=== PATIENT | male | born 1955 | race Caucasian/White ===

== ENCOUNTER → 2017-02-12 | Outpatient (CLI) | payer BC ==
[~2017-02-12] MED LIST: ALL180 PO; ATOR-22 PO; BACL10TA PO; ESCI10TA17 PO; FEXO1TAB49 PO; INSDGI SC; INSU70IN2 SC; LISI40TA PO; NVLGIPEN; SIMV20TA2 PO; SITA100T3 PO; TEMA30CA4 PO; VERA240T20 PO
--- NOTE | 2017-02-12 11:43 | DIAGNOSTIC IMAGING REPORT ---
PA CHEST WITH BILATERAL RIB SERIES CLINICAL HISTORY: Atypical chest pain. Fall. FINDINGS: A PA chest radiograph with 8 additional views from a bilateral rib series is compared to study dated 01/23/2016 and correlated with chest CT dated 07/14/2006. The heart is enlarged. The pulmonary vasculature is noncongested. There is minimal left basilar atelectasis. The lungs and pleural spaces are otherwise clear. No pneumothorax is seen. There is no radiographic evidence of acute/distracted rib fracture on the bilateral rib series. The remainder of the bony thorax is grossly intact. Fusion hardware is noted in the lower cervical spine. IMPRESSION: 1. Cardiomegaly with no acute cardiopulmonary abnormality. 2. There is no radiographic evidence of acute/distracted rib fracture on the bilateral rib series. Electronically signed by: Deyvi Shabazz M.D. 02/12/2017 11:42 AM Dictated Date/Time: 02/12/2017 11:40 AM
== END | disposition home or self-care (01) ==
LOC: C.RAD1850 11:14
PROVIDERS: ATTEND Nurse Practitioner Family
DX: R07.9 Chest pain, unspecified (principal); W19.XXXA Unspecified fall, initial encounter; I42.9 Cardiomyopathy, unspecified

== ENCOUNTER → 2017-02-17 | Outpatient (CLI) | payer BC ==
[2017-02-17 16:30] LABS: BASO % 0.1 %; BASO ABS # 0.01 K/uL (0-0.2); COMPLETE YES; EOS % 0.1 %; HEMATOCRIT 38.4 % (42-52); IG% 0.2 %; LYMPH % 21.4 %; LYMPH ABS # 1.99 K/uL (1.2-3.4); MEAN CELL VOLUME 86.9 fL (80-100); MEAN CORPUSCULAR HEMOGLOBIN 30.1 pg (25-34); MEAN CORPUSCULAR HGB CONC 34.6 g/dl (32-36); MEAN PLATELET VOLUME 9.1 fL (7.4-10.4); NEUT % 72.2 %; PLATELET COUNT 300 K/uL (130-400); PROTHROMBIN TIME (PATIENT) 10.7 SECONDS (9.0-12.0); RED BLOOD COUNT 4.42 M/uL (4.7-6.1)
[2017-02-17 16:53] LABS: POTASSIUM 3.7 mmol/L (3.5-5.1)
== END | disposition home or self-care (01) ==
LOC: C.CPL 13:38
PROVIDERS: ATTEND Physician Assistant
DX: Z01.818 Encounter for other preprocedural examination (principal)

== ENCOUNTER → 2017-02-27 | Outpatient (CLI) | payer BC ==
[~2017-02-27] MED LIST changes: -ALL180 PO; -BACL10TA PO; -INSU70IN2 SC; -SITA100T3 PO; -TEMA30CA4 PO
--- NOTE | 2017-02-27 19:28 | PULMONARY FUNCTION TEST ---
CLINICAL DATA: A 61-year-old male with a height of 69 inches and a weight of 235 pounds, referred by Brent Abdalla for evaluation of shortness of breath. Spirometry pre- and post-bronchodilator, lung volumes and diffusion capacity were performed. FINDINGS: Pre-bronchodilator spirometry is within normal limits. FVC was 83% of predicted. FEV1 was 87% of predicted. [id number] was 110% of predicted. There was no significant improvement after inhaled bronchodilator. FVC improved 3% to 85% of predicted. FEV1 improved 4% to 91% of predicted. [id number] improved 7% to 118% of predicted. Lung volumes were normal with the exception of a reduction in expiratory reserve volume to 51% of predicted due to obesity. Diffusion capacity was normal at 79% of predicted. IMPRESSION: No evidence of significant obstructive airways disease with no significant improvement after inhaled bronchodilator. Minimal reduction in expiratory reserve volume due to obesity. Normal DLCO. MTDD
== END | disposition home or self-care (01) ==
LOC: C.RC 10:47
PROVIDERS: ATTEND Nurse Practitioner Family
DX: R06.02 Shortness of breath (principal); E66.9 Obesity, unspecified

== ENCOUNTER → 2017-04-04 | Outpatient (CLI) | payer BC ==
--- NOTE | 2017-04-04 15:47 | DIAGNOSTIC IMAGING REPORT ---
CHEST 2 VIEWS ROUTINE CLINICAL HISTORY: Cough. COMPARISON STUDY: Chest radiograph February 12, 2017. FINDINGS: Anterior cervical spine fusion is incidentally noted. There is no pneumothorax or pleural effusion. Cardiomegaly is unchanged. Mediastinal contours are stable. There is no evidence of pulmonary edema. Lateral view demonstrates mild airspace opacity projecting over a lower lung, possibly within the left lower lung. IMPRESSION: Mild basilar opacity, likely within the left lower lung. This could reflect a small area of pneumonia or atelectasis. Follow-up PA and lateral chest radiographs in one month to ensure resolution are recommended. Electronically signed by: Adrian Hoover M.D. 04/04/2017 3:46 PM Dictated Date/Time: 04/04/2017 3:44 PM
== END | disposition home or self-care (01) ==
LOC: C.RAD1850 15:17
PROVIDERS: ATTEND Nurse Practitioner Family
DX: R05 Cough (principal); R91.8 Other nonspecific abnormal finding of lung field

== ENCOUNTER → 2017-04-11 | Outpatient (CLI) | payer BC ==
[~2017-04-11] MED LIST changes: +CYAN10005 PO; +ESCI1TAB10 PO; +FERR1TAB23 PO; +INSU1INJ33; +KETOCONAZOLE; +LANS30CA12 PO; +NVLGI7030 SC; +NYST1POW7 TOP; +ONDA8TAB62 SL; +TEMO1CAP; +TEMO1CAP7 PO
--- NOTE | 2017-04-11 13:30 | DIAGNOSTIC IMAGING REPORT ---
CHEST 2 VIEWS ROUTINE HISTORY: 61 years-old Male J18.9 [id number] follow-up study to assess left lower lobe opacity. COMPARISON: Chest radiograph 04/04/2017 TECHNIQUE: PA and lateral views of the chest FINDINGS: Cardiac silhouette is moderately enlarged, unchanged. No pneumothorax, pleural effusion or overt edema. No focal airspace consolidation identified. The previously noted left basilar opacity no longer identified. No lobar airspace consolidation to suggest pneumonia. Mild right hemidiaphragmatic elevation. The bones of the chest appear grossly intact. Degenerative changes are seen within the shoulders. Fusion hardware of the cervical spine. IMPRESSION: 1. Resolution of the previously noted left basilar opacity. 2. Cardiomegaly. The above report was generated using voice recognition software. It may contain grammatical, syntax or spelling errors. Electronically signed by: David Blanco M.D. 04/11/2017 1:28 PM Dictated Date/Time: 04/11/2017 1:26 PM
== END | disposition home or self-care (01) ==
LOC: C.RAD1850 13:17
PROVIDERS: ATTEND Nurse Practitioner Family
DX: J18.9 Pneumonia, unspecified organism (principal); I51.7 Cardiomegaly

== ENCOUNTER → 2017-06-03 | Outpatient (CLI) | payer OTHER ==
[~2017-06-03] MED LIST changes: -CYAN10005 PO; -ESCI1TAB10 PO; -FERR1TAB23 PO; -INSU1INJ33; -KETOCONAZOLE; -LANS30CA12 PO; -NVLGI7030 SC; -NYST1POW7 TOP; -ONDA8TAB62 SL; -TEMO1CAP; -TEMO1CAP7 PO
--- NOTE | 2017-06-03 10:10 | DIAGNOSTIC IMAGING REPORT ---
CHEST 2 VIEWS ROUTINE CLINICAL HISTORY: Z87.01 History of [id number] Shortness of [id number] COMPARISON STUDY: 04/11/2017, 2013 FINDINGS: Slightly progressive interstitial prominence of both lung bases. The mid and upper lungs are clear. Mild stable cardiomegaly. Mid mediastinal fullness considered chronic in this patient and unchanged from 2013. No well-defined focal infiltrative process. Pulmonary apices are clear. IMPRESSION: 1. Slightly progressive interstitial prominence both lung bases compared to several prior exams. 2. Diagnostic considerations include a nonspecific basilar interstitial pneumonitis, versus developing nonspecific basilar interstitial fibrosis. 3. CT of the chest should be considered as follow-up. The above report was generated using voice recognition software. It may contain grammatical, syntax or spelling errors. Electronically signed by: Jason Jaffe M.D. 06/03/2017 10:09 AM Dictated Date/Time: 06/03/2017 10:03 AM
== END | disposition home or self-care (01) ==
LOC: C.RAD1850 09:41
PROVIDERS: ATTEND Nurse Practitioner Family
DX: Z87.01 Personal history of pneumonia (recurrent) (principal); R06.02 Shortness of breath

== ENCOUNTER 2018-05-12 11:33 | Inpatient (IN) ==
[2018-05-12] MEDS ORDERED: SODIUM CHLORIDE 0.9% 1000ML 1,000 ML IV ONE (12:18)
[2018-05-12] MEDS ORDERED: DiphenhydrAMINE HCL 50 MG/ML VIAL IV STA (12:18)
[2018-05-12] MEDS ORDERED: PROCHLORPERAZINE 5 MG/ML 2 ML VIAL IV STA (12:18)
[2018-05-12 12:26] LABS: Eosinophils # (auto) 0.01 K/uL (0-0.5); Eosinophils % (auto) 0.1 %; Hematocrit (blood only) 38.1 % (42-52); Hemoglobin 13.2 g/dL (14.0-18.0); Immature Granulocytes # (auto) 0.09 K/uL (0.00-0.02); Immature Granulocytes % (auto) 1.3 %; Lymphocytes # (auto) 1.11 K/uL (1.2-3.4); Lymphocytes % (auto) 15.5 %; Mean Corpuscular Hgb Conc 34.6 g/dL (32-36); Mean Platelet Volume 8.9 fL (7.4-10.4); Monocytes # (auto) 0.44 K/uL (0.11-0.59); Monocytes % (auto) 6.1 %; Neutrophils # (auto) 5.52 K/uL (1.4-6.5); Platelet Count 177 K/uL (130-400); RDW Coefficient of Variation 15.9 % (11.5-14.5); RDW Standard Deviation 51.2 fL (36.4-46.3); Red Blood Count 4.28 M/uL (4.7-6.1); White Blood Count 7.17 K/uL (4.8-10.8)
--- NOTE | 2018-05-12 12:31 | XRay Report ---
XR chest 1V portable CLINICAL HISTORY: 62 years-old Male presenting with Chest Pain. TECHNIQUE: Portable upright AP view of the chest was obtained. COMPARISON: 05/08/2017. FINDINGS: Atherosclerosis of the aortic arch. Cardiac silhouette enlarged. Left retrocardiac density likely rel ates to the prominent pericardial fat in the setting of mediastinal lipomatosis. No focal lung opacit y. No large effusion or pneumothorax. Anterior cervical fusion hardware. Upper abdomen normal. IMPRESSION: 1. Cardiomegaly. No other convincing evidence of acute cardiopulmonary disease. Electronically signed by: Mark Dawn M.D. 05/12/2018 12:30 PM
[2018-05-12 12:34] LABS: Alanine Aminotransferase 42 U/L (12-78); Albumin Level 2.9 gm/dl (3.4-5.0); Aspartate Aminotransferase 7 U/L (15-37); BUN Creatinine Ratio 30.2 (10-20); Bilirubin Direct 0.1 mg/dl (0-0.2); Blood Urea Nitrogen 37 mg/dl (7-18); Calcium 8.6 mg/dl (8.5-10.1); Carbon Dioxide 23 mmol/L (21-32); Chloride 104 mmol/L (98-107); Creatinine Clr Calc Pharmacy 70.8 ml/min; Est GFR (African American) 72.7; Est GFR (Non-African American) 62.7; Glucose 295 mg/dl (70-99); Sodium 138 mmol/L (136-145)
[2018-05-12 12:43] LABS: Alkaline Phosphatase 53 U/L (45-117); Bilirubin,Total 0.5 mg/dl (0.2-1); Creatine Kinase 26 U/L (39-308); Phosphorus 4.4 mg/dl (2.5-4.9); Total Protein 5.9 gm/dl (6.4-8.2); Troponin I < 0.015 ng/ml (0-0.045)
[2018-05-12 12:56] LABS: T4 Free Thyroxine 0.92 ng/dl (0.8-1.6)
[2018-05-12 12:57] LABS: Appearance Urine Clear (Clear); Bilirubin Urine Negative (Negative); Color Urine Yellow; Glucose Urine UA 3+ (Negative); Ketones Urine Negative (Negative); Leukocyte Esterase Urine Negative (Negative); Nitrite Urine Negative (Negative); Protein Urine Negative (Negative); Specific Gravity Urine 1.031 (1.000-1.030); Urobilinogen Urine Negative (Negative)
--- NOTE | 2018-05-12 13:06 | CT Scan Report ---
CT SCAN OF THE BRAIN WITHOUT IV CONTRAST CLINICAL HISTORY: Headache. Brain tumor with recent surgery. COMPARISON STUDY: CT scans of the brain dated 05/08/2018 and 04/13/2018. TECHNIQUE: Unenhanced axial CT scan of the brain is performed from the vertex to the skull base. A do se lowering technique was utilized adhering to the principles of ALARA. CT DOSE: 614.27 mGy.cm FINDINGS: Brain parenchyma: Right temporal encephalomalacia is unchanged and consistent with a site of previous surgical resection. There is a low-attenuation extra-axial fluid collection identified along the rig ht convexity. This is unchanged from 05/08/2018 and measures up to 10 mm in thickness. This minimally effaces the subjacent cortical sulci and causes minimal (3 mm) right to left midline shift. There is approximately 7 x 2 cm CSF attenuation fluid collection seen within the subcutaneous soft tissues ove rlying the right convexity on image #13. 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 There is minimal subcortical and perive ntricular microangiopathic change. There is no acute hemorrhage or evidence of acute territorial isch emia by CT criteria. Ferris-white matter differentiation is preserved. Hyperdense material deep to the craniotomy site likely represents postoperative change. Ventricles, sulci, cisterns: Prominent secondary to involutional change. Intracranial vasculature: There is atherosclerotic calcification of the cavernous carotid arteries. Calvarium: Again seen are postoperative changes from right-sided craniotomy. Sinuses and mastoids: The visualized paranasal sinuses are clear. There are bilateral mastoid effusio ns. Orbits: The bony orbits are grossly intact. IMPRESSION: 1. Again seen are postoperative changes from right-sided craniotomy and temporal lobe resection. 2. Again seen is a low-attenuation extra-axial fluid collection along the right convexity measuring u p to 1.0 cm. This is unchanged from 05/08/2018 and likely represents a hygroma. Neurosurgical assessme nt is advised. 3. This collection effaces the subjacent cortical sulci and causes mild right to left midline shift. 4. There is an approximately 7 x 2 x 2 cm CSF attenuation fluid collection within the soft tissues ov erlying the right convexity. 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 This may have modestly increased in size from 2018. 5. No acute blood products are identified. There is no evidence of acute territorial ischemia by CT jeanmarie carbajal. Electronically signed by: Deyvi Shabazz M.D. 05/12/2018 1:05 PM
[2018-05-12] MEDS ORDERED: SODIUM CHLORIDE 0.9% 1000ML 1,000 ML IV STA (14:04)
--- NOTE | 2018-05-12 14:42 | History & Physical Report ---
Date of Service May 12, 2018 Assessment & Plan (1) Generalized weakness: He was quite weak while at [facility], and after d/c from there the weakness got progressively worse. He has no obvious infectious process at this time including UTI, pneumonia, influenza, etc. I believe he is severely deconditioned in light of his recent surgery, etc. The uncontrolled T2DM is also likely playing a role. He is also dehydrated from the uncontrolled blood sugars. I had a lengthy discussion with Dr. Aubrey Watts, neurosurgery at [facility], this afternoon. We reviewed the CT head in detail. Dr. Watts stated that there are no findings on today's head CT that require neurosurgical intervention. He recommended therapy, control of his DM, and to obtain the MRI brain that was already scheduled for later this week at [facility]. The patient has no signs of meningitis. His daily headaches are similar to what he had post-op at [facility]. To be complete will check a b12 level, sed rate, and crp. Check blood cultures but hold off on antibiotics. PT, OT consults. Patient also endorses severe depression - will ask psychiatry to see. He is already on several psychotropic drugs. Place on telemetry to r/o arrhythmia, etc causing weakness. Present on Admission?: Yes (2) Dehydration: Hydrate with NS; repeat BMP in am. DM diet as tolerated. Present on Admission?: Yes (3) Breath, shortness: Just had CTA chest a few days ago and this was negative for PEs, pneumonia , edema, etc. Will check echo to be complete; r/o LV dysfunction, effusion, etc. In the end the shortness of breath may be due to severe deconditioning. He has no history of CAD and I would not pursue a CAD work-up at this time. Present on Admission?: Yes (4) Depression: Severe, chronic, and getting worse in the midst of his recent surgery. Will ask psychiatry to see. Continue all previous medications. Present on Admission?: Yes (5) Glioblastoma: s/p resection in May 2017 shortly after time of diagnosis. s/p repeat resection in March 2018. Both at [facility]. Surgeon -- Dr. Aubrey Watts, [facility]. Office # - [phone]; Fax # - [phone]. Dr. Watts asked that when the MRI courtney is complete to please fax the results to his office. See above in "weakness" for details Re: my discussion with him today. He advised against increasing his decadron as he has not tolerated higher levels of the decadron. Plan - MRI brain w/ contrast. Continue decadron 2mg daily. Supportive care. Will need f/u with surgeon after discharge. Continue keppra 500 BID for seizure prophylaxis. does not report any recent seizures at home. (6) Stroke: perioperative, March 2018/April 2018 hospital stay. caused mild left-sided symptoms and transient speech issues; all symptoms have improved per . (7) Essential hypertension: Continue home medications. Present on Admission?: Yes (8) Hyperlipidemia: Continue simvastatin. Present on Admission?: Yes (9) Diabetes mellitus type 2, uncontrolled: I believe this is playing a large role in his ongoing failure to thrive. His BSGs have been 300 or higher numerous times at home. He typically takes about 15 units of novolog w/ meals along with basal insulin. Increase his lantus to 45 units HS. Novolog correction factor 15; carb ratio 1:5. Machine Chain Maker consult. DM educator consult. Low threshold for IV insulin if we don't get his sugars down in a reasonable amount of time. Check a1c in am. Of note - TSH was mildly depressed but Free T4 is normal; no Rx needed. Present on Admission?: Yes (10) Headache: Daily, chronic. He is using tylenol with motrin every day at home. Will continue these. He would benefit from prophylaxis. If Bps remain high consider inderal LA. Could also consider neurology consult for assistance with this issue which is likely to be ongoing and difficult to treat. (11) DVT prophylaxis: SCDs. I am uncertain if his current brain issues are contraindication to chemical anticoagulation. total time spent on admission activities - 80 minutes. History of Present Illness Chief Complaint: weakness Primary Care Provider: Brent Abdalla, III, LICENSED SURVEYOR 62yo male with history of glioblastoma - initial diagnosis in May 2017 s/p resection at [facility] - with a second resection on 04/20/18 also at [facility] Dr. Aubrey Watts is his surgeon. He had been having monthly MRI scans since his initial diagnosis and in March it was decided he needed repeat surgery due to tumor growth. His recent [facility] stay was complicated by a stroke on the right side of his brain. This was mild. He was d/c from [facility] on April 26 to [facility] in [employer]. He was d/c from [facility] on May 06. His stated he did ok from a therapy standpoint but he was quite tired while there. After [facility] discharge he has "gone down" with progressive weakness. His is having to help him considerably with ambulation. He has had a good appetite, however. ("eating everything") He is a diabetic and his blood sugars have been uncontrolled in the high 200s to 400+ range. No fevers. He has had swelling about the left eye for several mornings but not today. No falls. He has had daily headaches. They are over the incision site (right parietal region). There is no positional change in headaches (ie - no worsening with standing). He was supposed to follow-up with [facility] this for repeat MRI. He has been on dexamethasone since March 2018. He takes 2mg/day. Higher amounts apparently make him quite agitated with personality change, etc. Allergies Allergy/AdvReac Type Severity Reaction Status Date / Time codeine AdvReac Intermediate HALLUCINATI Verified 05/12/18 12:57 ONS Home Medications Home Medications Medication Instructions Recorded Confirmed Type dexamethasone 2 mg PO QAM 04/13/18 05/12/18 History escitalopram oxalate [Lexapro] 20 mg PO QAM 04/13/18 05/12/18 History fexofenadine 180 mg PO QAM 04/13/18 05/12/18 History lansoprazole [Prevacid] 30 mg PO DAILYBB 04/13/18 05/12/18 History lisinopril 40 mg PO QAM 04/13/18 05/12/18 History quetiapine [Seroquel] 50 mg PO HS #10 tab 04/13/18 05/12/18 Rx simvastatin 20 mg PO HS 04/13/18 05/12/18 History verapamil 240 mg PO AMHS 04/13/18 05/12/18 History acetaminophen [Tylenol Extra 500 - 1,000 mg PO TID 05/08/18 05/12/18 History Strength] ibuprofen 400 mg PO Q8 PRN 05/08/18 05/12/18 History levetiracetam 500 mg PO BID 05/08/18 05/12/18 History ondansetron 4 mg PO Q6 PRN 05/08/18 05/12/18 History sennosides [senna] 8.6 mg PO QDL 05/08/18 05/12/18 History tamsulosin [Flomax] 0.4 mg PO HS 05/08/18 05/12/18 History temazepam 30 mg PO HS PRN 05/08/18 05/12/18 History insulin aspart U-100 [Novolog 0 units SUBCUT TID 05/12/18 05/12/18 History Flexpen U-100 Insulin] insulin degludec [Tresiba 33 units SUBCUT HS 05/12/18 05/12/18 History FlexTouch U-100] Past Med/Surg History Medical History Stroke (Chronic) Diabetes mellitus type 2, uncontrolled Essential hypertension Glioblastoma Hyperlipidemia Brain mass (Inactive) Surgical History Hx of brain surgery x 2 --- first May 2017; second March 2018 for Glioblastoma Family History Grandmother Brain tumor Father , age 62 Lung cancer Mother , in her 70s Stroke Social History marital status: marital status details: 2x (first ); has 4 children from first marriage Current Living Situation: Spouse current occupational status: retired Other Information That Helps Us Care for You: No other: worked at the [[employer] Feels Safe at Home: No Is there a partner from a previous relationship who is making you feel unsafe now?: No Any Concerns about Your Family Situation: Yes ( decline becomes mean to family members) Would You Like to Speak to Someone About Your Situation: Yes Safety Concerns: Afraid for Others in Home Smoking Status: Never smoker Hx Alcohol Use: No Hx Substance Use: No Beliefs That Will Affect Care: None Preferred Language: Vietnamese Communication Ability: Effective Review of Systems Constitutional: + fatigue, + weakness and + weight loss; no fever, no chills, no body aches and no anorexia Eyes: + worsening vision (blurry vision ) Ear, Nose, Mouth, Throat: no nasal congestion, no sore throat and no dysphagia Respiratory: + cough (occasional ) and + dyspnea on exertion; no dyspnea (at rest) Cardiovascular: no chest pain, no orthopnea and no paroxysmal nocturnal dyspnea Gastrointestinal: no abdominal pain, no nausea, no vomiting, no constipation and no diarrhea/loose stools Genitourinary (Male): no dysuria Musculoskeletal: no back pain, no joint pain and no myalgia Integumentary: no rash Neurologic: + generalized weakness and + headache(s); no localized weakness and no seizure-like activity Psychiatric: + depression uncontrolled T2DM Hematologic / Lymphatic: no easy bleeding and no easy bruising Physical Exam 2 Vital Signs (Past 24 Hours): Last Vital Signs Temp 36.6 C 05/12/18 11:44 Pulse 69 05/12/18 12:39 Resp 18 05/12/18 12:39 BP 122/81 05/12/18 12:39 Pulse Ox 97 05/12/18 12:40 Constitutional: + obese; no acute distress Eyes: + anicteric sclerae and PERRL; no eyelid abnormality and no conjunctival abnormality ENMT: Mouth: + oral mucosal abnormality (slightly dry MM) and + dentition abnormality (poor dentition); no oropharynx abnormality and no tongue abnormality Neck: trachea midline, no thyromegaly Respiratory: normal respiratory effort, lungs clear to auscultation Cardiovascular: RRR, no murmur, no edema Heart Sounds: normal S1 and normal S2 Vessels: posterior tibial pulses present and dorsalis pedis pulses present; no JVD Gastrointestinal (Abdomen): normal bowel sounds, soft, nontender, no hepatosplenomegaly Musculoskeletal: no cyanosis or clubbing, extremities motor strength 5/5 Skin: no rashes, warm and dry right scalp -- large vertical incision well healed; for several centimeters in all directions from this incision there is mild-moderate swelling; no overlying redness; no drainage; no tenderness to palpation Neurologic: deep tendon reflexes 2+ bilaterally; no focal motor deficits Speech / Cognition: normal speech mild left-sided facial droop; finger/nose/ finger maneuver w/o dysmetria b/l; gait not tested Psychiatric: Orientation: alert; + not oriented x 3 (could not tell me the day but knew the year and where he was (hospital)) Mood: + depressed mood Lymphatic: no cervical lymphadenopathy Results & Data Laboratory Results Laboratory Results - last 24 hr 05/12/18 05/12/18 05/12/18 11:40 11:40 11:40 WBC 7.17 RBC 4.28 L Hgb 13.2 L Hct 38.1 L MCV 89.0 MCH 30.8 MCHC 34.6 RDW Std Deviation 51.2 H RDW Coeff of Rashid 15.9 H Plt Count 177 MPV 8.9 Immature Gran % (Auto) 1.3 Neut % (Auto) 77.0 Lymph % (Auto) 15.5 [place] % (Auto) 6.1 Eos % (Auto) 0.1 Baso % (Auto) 0.0 Immature Gran # (Auto) 0.09 H Neut # (Auto) 5.52 Lymph # (Auto) 1.11 L [place] # (Auto) 0.44 Eos # (Auto) 0.01 Baso # (Auto) 0.00 ESR 4 Sodium 138 Potassium 4.0 Chloride 104 Carbon Dioxide 23 Anion Gap 11.0 BUN 37 H Creatinine 1.22 Est Cr Clr Drug Dosing 70.8 Est GFR ( Amer) 72.7 Est GFR (Non-Af Amer) 62.7 BUN/Creatinine Ratio 30.2 H Glucose 295 H Calcium 8.6 Phosphorus 4.4 Magnesium 2.0 Total Bilirubin 0.5 Direct Bilirubin 0.1 AST 7 L ALT 42 Alkaline Phosphatase 53 Total Creatine Kinase 26 L Troponin I < 0.015 C-Reactive Protein Total Protein 5.9 L Albumin 2.9 L Globulin 3.0 Albumin/Globulin Ratio 1.0 Lipase 163 Vitamin B12 TSH 0.269 L Free T4 0.92 Urine Color Urine Appearance Urine pH Ur Specific [place] Urine Protein Urine Glucose (UA) Urine Ketones Urine Blood Urine Nitrite Urine Bilirubin Urine Urobilinogen Ur Leukocyte Esterase 05/12/18 05/12/18 05/12/18 11:40 12:35 16:01 WBC RBC Hgb Hct MCV MCH MCHC RDW Std Deviation RDW Coeff of Rashid Plt Count MPV Immature Gran % (Auto) Neut % (Auto) Lymph % (Auto) [place] % (Auto) Eos % (Auto) Baso % (Auto) Immature Gran # (Auto) Neut # (Auto) Lymph # (Auto) [place] # (Auto) Eos # (Auto) Baso # (Auto) ESR Sodium Potassium Chloride Carbon Dioxide Anion Gap BUN Creatinine Est Cr Clr Drug Dosing Est GFR ( Amer) Est GFR (Non-Af Amer) BUN/Creatinine Ratio Glucose Calcium Phosphorus Magnesium Total Bilirubin Direct Bilirubin AST ALT Alkaline Phosphatase Total Creatine Kinase Troponin I C-Reactive Protein < 0.29 Total Protein Albumin Globulin Albumin/Globulin Ratio Lipase Vitamin B12 1196 H TSH Free T4 Urine Color Yellow Urine Appearance Clear Urine pH 5.0 Ur Specific [place] 1.031 H Urine Protein Negative Urine Glucose (UA) 3+ H Urine Ketones Negative Urine Blood Negative Urine Nitrite Negative Urine Bilirubin Negative Urine Urobilinogen Negative Ur Leukocyte Esterase Negative Diagnostic Findings CT head - IMPRESSION: 1. Again seen are postoperative changes from right-sided craniotomy and temporal lobe resection. 2. Again seen is a low-attenuation extra-axial fluid collection along the right convexity measuring up to 1.0 cm. This is unchanged from 05/08/2018 and likely represents a hygroma. Neurosurgical assessment is advised. 3. This collection effaces the subjacent cortical sulci and causes mild right to left midline shift. 4. There is an approximately 7 x 2 x 2 cm CSF attenuation fluid collection within the soft tissues overlying the right convexity. 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 This may have modestly increased in size from 05/08/2018. 5. No acute blood products are identified. There is no evidence of acute territorial ischemia by CT criteria. EKG - my reading - NSR, artifact; poor R wave progression; left axis deviation; no acute ST changes Code Status & VTE Plan Code Status level 1 full code VTE Prophylaxis Plan VTE Prophylaxis will be ordered: Yes _ (1) Hyperlipidemia Hyperlipidemia type: mixed hyperlipidemia Qualified Code(s): E78.2 - Mixed hyperlipidemia (2) Diabetes mellitus type 2, uncontrolled Glycemic state: with hyperglycemia Qualified Code(s): E11.65 - Type 2 diabetes mellitus with hyperglycemia (3) Stroke CVA mechanism: unspecified Qualified Code(s): I63.9 - Cerebral infarction, unspecified (4) Depression Depression Type: other depression Qualified Code(s): F32.89 - Other specified depressive episodes (5) Headache Headache type: unspecified Headache chronicity pattern: chronic headache Intractability: intractable Qualified Code(s): R51 - Headache
--- NOTE | 2018-05-12 15:09 | Emergency Department Note ---
Entered by Laine Berrios acting as a scribe for History of Present Illness General Chief complaint: Headache Time Seen by Provider: 05/12/18 11:56 Source: patient and family () Limitations: no limitations History of Present Illness Provider complaint: weakness Onset (ago): month(s) 1 Location: head Pain Consistency: + other (persistent) Maximum Pain Intensity: 6 Quality: + other (worsening) Associated symptoms: + other (Associated symptoms: fatigue, headache, inability to walk with cane.) The patient is a 62 year old male who presents to the Emergency Room with complaints of a persistent, worsening weakness beginning 6 days ago. His reports he is very fatigued and unable to leave his bedroom. The patient had his second GBM resection on 04/20/18, and was discharged home from rehab at [facility] 6 days ago. His reports he was seen in the ED a few days ago for shortness of breath, and she was very upset he was not kept for observation as she feels the patient is too weak to function at home. She notes he has had a persistent headache since his surgery. His reports the patient was able to walk with a cane following his discharge, but is no longer able to. The patient sees Dr. Abdalla as his PCP. Has appointment on in [place] for post-op MRI for re-evaluation. Home Medications Home Medications Medication Instructions Recorded Confirmed Type dexamethasone 2 mg PO QAM 04/13/18 05/12/18 History escitalopram oxalate [Lexapro] 20 mg PO QAM 04/13/18 05/12/18 History fexofenadine 180 mg PO QAM 04/13/18 05/12/18 History lansoprazole [Prevacid] 30 mg PO DAILYBB 04/13/18 05/12/18 History lisinopril 40 mg PO QAM 04/13/18 05/12/18 History quetiapine [Seroquel] 50 mg PO HS #10 tab 04/13/18 05/12/18 Rx simvastatin 20 mg PO HS 04/13/18 05/12/18 History verapamil 240 mg PO AMHS 04/13/18 05/12/18 History acetaminophen [Tylenol Extra 500 - 1,000 mg PO TID 05/08/18 05/12/18 History Strength] ibuprofen 400 mg PO Q8 PRN 05/08/18 05/12/18 History levetiracetam 500 mg PO BID 05/08/18 05/12/18 History ondansetron 4 mg PO Q6 PRN 05/08/18 05/12/18 History sennosides [senna] 8.6 mg PO QDL 05/08/18 05/12/18 History tamsulosin [Flomax] 0.4 mg PO HS 05/08/18 05/12/18 History temazepam 30 mg PO HS PRN 05/08/18 05/12/18 History insulin aspart U-100 [Novolog 0 units SUBCUT TID 05/12/18 05/12/18 History Flexpen U-100 Insulin] insulin degludec [Tresiba 33 units SUBCUT HS 05/12/18 05/12/18 History FlexTouch U-100] Allergies Allergy/AdvReac Type Severity Reaction Status Date / Time codeine AdvReac Intermediate HALLUCINATI Verified 05/12/18 12:57 ONS Past Med/Surg History Medical History Stroke (Chronic) Diabetes mellitus type 2, uncontrolled Essential hypertension Glioblastoma Hyperlipidemia Brain mass (Inactive) Surgical History Hx of brain surgery x 2 --- first May 2017; second March 2018 for Glioblastoma Family History Grandmother Brain tumor Father , age 62 Lung cancer Mother , in her 70s Stroke Social History marital status: marital status details: 2x (first ); has 4 children from first marriage Current Living Situation: Spouse current occupational status: retired Other Information That Helps Us Care for You: No other: worked at the [employer] Feels Safe at Home: No Is there a partner from a previous relationship who is making you feel unsafe now?: No Any Concerns about Your Family Situation: Yes ( decline becomes mean to family members) Would You Like to Speak to Someone About Your Situation: Yes Safety Concerns: Afraid for Others in Home Smoking Status: Never smoker Hx Alcohol Use: No Hx Substance Use: No Beliefs That Will Affect Care: None Preferred Language: Frisian Communication Ability: Effective Review of Systems See HPI for pertinent positives & negatives. and A total of 10 systems reviewed and were otherwise negative Physical Exam Vital Signs Vital Signs - 24 hr 05/12/18 11:44 05/12/18 12:39 05/12/18 12:40 Temperature 36.6 C Temperature Source Oral Sepsis Recent Fever Within 48 Hours No Sepsis Action Taken by Nursing No Action Required Pulse Rate 71 Pulse Rate [Apical] 69 Pulse Rate [Finger] Pulse Rhythm Regular Pulse Rhythm [Apical] Pulse Strength Normal Pulse Strength [Apical] Respiratory Rate 17 18 Respiratory Effort / Characteristics Non-Labored Spontaneous Non-Labored Respiratory Depth Normal Normal Respiratory Pattern Regular Blood Pressure 144/80 H Blood Pressure [Left Arm] 122/81 Blood Pressure [Right Arm] Blood Pressure Mean 101 Blood Pressure Mean [Left Arm] 94 Blood Pressure Mean [Right Arm] Blood Pressure Position Lying Blood Pressure Position [Right Arm] Pulse Oximetry 98 98 97 Oxygen Delivery Method Room Air Room Air Room Air 05/12/18 15:37 05/12/18 15:44 05/12/18 17:17 Temperature Temperature Source Sepsis Recent Fever Within 48 Hours Sepsis Action Taken by Nursing Pulse Rate Pulse Rate [Apical] 79 66 Pulse Rate [Finger] Pulse Rhythm Pulse Rhythm [Apical] Regular Pulse Strength Pulse Strength [Apical] Normal Respiratory Rate 19 18 Respiratory Effort / Characteristics Non-Labored Spontaneous Non-Labored Spontaneous Respiratory Depth Normal Normal Respiratory Pattern Regular Regular Blood Pressure Blood Pressure [Left Arm] 113/73 137/74 Blood Pressure [Right Arm] Blood Pressure Mean Blood Pressure Mean [Left Arm] 86 95 Blood Pressure Mean [Right Arm] Blood Pressure Position Blood Pressure Position [Right Arm] Pulse Oximetry 94 95 Oxygen Delivery Method Room Air Room Air 05/12/18 17:53 Temperature 36.4 C L Temperature Source Oral Sepsis Recent Fever Within 48 Hours Sepsis Action Taken by Nursing Pulse Rate Pulse Rate [Apical] Pulse Rate [Finger] 66 Pulse Rhythm Pulse Rhythm [Apical] Pulse Strength Pulse Strength [Apical] Respiratory Rate 18 Respiratory Effort / Characteristics Non-Labored Respiratory Depth Normal Respiratory Pattern Regular Blood Pressure Blood Pressure [Left Arm] Blood Pressure [Right Arm] 146/86 H Blood Pressure Mean Blood Pressure Mean [Left Arm] Blood Pressure Mean [Right Arm] 106 Blood Pressure Position Blood Pressure Position [Right Arm] Right Lateral Pulse Oximetry 97 Oxygen Delivery Method Room Air GENERAL: Awake, alert, fatigued/uncomfortable-appearing, in no distress HENT: Normocephalic, atraumatic. Oropharynx with dry mucous membranes and otherwise unremarkable. EYES: Normal conjunctiva. Sclera non-icteric. EOMi. No nystamgus. PEARRL. NECK: Supple. No nuchal rigidity. FROM. No JVD. RESPIRATORY: Clear to auscultation. CARDIAC: Regular rate, normal rhythm. Extremities warm and well perfused. Pulses equal. ABDOMEN: Soft, non-distended. No tenderness to palpation. No rebound or guarding. No masses. RECTAL: Deferred. MUSCULOSKELETAL: Chest examination reveals no tenderness. The back is symmetrical on inspection without obvious abnormality. There is no CVA tenderness to palpation. No joint edema. LOWER EXTREMITIES: Calves are equal size bilaterally and non-tender. No edema. No discoloration. NEURO: Normal sensorium. No sensory or motor deficits noted. Normal cerebellar function with [id number], alternating palms, [id number], 5/5 strength and SILT x ext.. SKIN: No rash or jaundice noted. Course 1159: Past medical records reviewed. The patient was evaluated in room C11B, and a complete history and physical examination were performed. 1312: Upon reevaluation, the patient is feeling better. 1332: I reviewed the patient's case with [facility]. 1353: I reviewed the patient's case with Dr. Armendariz, [facility] hospitalist. He will evaluate the patient for further management. 1356: Upon reevaluation, the patient is resting. I discussed test results. They verbalized agreement with the treatment plan. Consultations Consultation #1: I reviewed the patient's case with [facility] neuro[facility] Time: 13:32 Consultation #2: I reviewed the patient's case with Dr. Armendariz, [facility] hospitalist. He will evaluate the patient for further management. Time: 13:53 Administered Medications Sodium Chloride (Nss 1000ml) 1,000 mls @ 125 mls/hr IV .Q8H MARU Stop: 05/13/18 09:52 Last Admin: 05/12/18 18:31 Dose: 125 mls/hr Insulin Aspart (Novolog Flexpen) 0 units SC ACHS MARU Stop: 06/11/18 17:52 Last Admin: 05/12/18 19:03 Dose: Not Given Discontinued Medications Diphenhydramine HCl (Benadryl) 25 mg IV NOW STA Stop: 05/12/18 12:19 Last Admin: 05/12/18 12:36 Dose: 25 mg Sodium Chloride (Nss 1000ml) 1,000 mls @ 999 mls/hr IV .Q1H1M ONE Stop: 05/12/18 13:18 Last Infusion: 05/12/18 14:44 Dose: 0 mls/hr Admin: 05/12/18 12:36 Dose: 999 mls/hr Prochlorperazine (Compazine) 10 mg IV NOW STA Stop: 05/12/18 12:19 Last Admin: 05/12/18 12:37 Dose: 10 mg Medical Decision Making Differential Diagnosis Differential includes acute coronary syndrome, myocardial infarction, CVA, TIA , anemia, infection, pneumonia, UTI, pyelonephritis, poor nutrition, dehydration , electrolyte disturbance,hypoglycemia. Medical Records Attestation: I reviewed the patient's medical records. Home Medications Current Medication List: was personally reviewed by me Laboratory Data Attestation: I reviewed the patient's lab results. Result diagrams: 05/12/18 11:40 05/12/18 11:40 Lab Results 05/12/18 05/12/18 05/12/18 Range/Units 11:40 11:40 11:40 WBC 7.17 (4.8-10.8) K/uL RBC 4.28 L (4.7-6.1) M/uL Hgb 13.2 L (14.0-18.0) g/dL Hct 38.1 L (42-52) % MCV 89.0 (80-100) fL MCH 30.8 (25-34) pg MCHC 34.6 (32-36) g/dL RDW Std Deviation 51.2 H (36.4-46.3) fL RDW Coeff of Rashid 15.9 H (11.5-14.5) % Plt Count 177 (130-400) K/uL MPV 8.9 (7.4-10.4) fL Immature Gran % (Auto) 1.3 % Neut % (Auto) 77.0 % Lymph % (Auto) 15.5 % [place] % (Auto) 6.1 % Eos % (Auto) 0.1 % Baso % (Auto) 0.0 % Immature Gran # (Auto) 0.09 H (0.00-0.02) K/uL Neut # (Auto) 5.52 (1.4-6.5) K/uL Lymph # (Auto) 1.11 L (1.2-3.4) K/uL [place] # (Auto) 0.44 (0.11-0.59) K/uL Eos # (Auto) 0.01 (0-0.5) K/uL Baso # (Auto) 0.00 (0-0.2) K/uL ESR 4 (0-14) mm/hr Sodium 138 (136-145) mmol/L Potassium 4.0 (3.5-5.1) mmol/L Chloride 104 (98-107) mmol/L Carbon Dioxide 23 (21-32) mmol/L Anion Gap 11.0 (3-11) BUN 37 H (7-18) mg/dl Creatinine 1.22 (0.6-1.4) mg/dl Est Cr Clr Drug Dosing 70.8 ml/min Est GFR ( Amer) 72.7 Est GFR (Non-Af Amer) 62.7 BUN/Creatinine Ratio 30.2 H (10-20) Glucose 295 H (70-99) mg/dl POC Glucose (70-99) Calcium 8.6 (8.5-10.1) mg/dl Phosphorus 4.4 (2.5-4.9) mg/dl Magnesium 2.0 (1.8-2.4) mg/dl Total Bilirubin 0.5 (0.2-1) mg/dl Direct Bilirubin 0.1 (0-0.2) mg/dl AST 7 L (15-37) U/L ALT 42 (12-78) U/L Alkaline Phosphatase 53 (45-117) U/L Total Creatine Kinase 26 L (39-308) U/L Troponin I < 0.015 (0-0.045) ng/ml C-Reactive Protein (0-0.29) mg/dl Total Protein 5.9 L (6.4-8.2) gm/dl Albumin 2.9 L (3.4-5.0) gm/dl Globulin 3.0 (2.5-4.0) gm/dl Albumin/Globulin Ratio 1.0 (0.9-2) Lipase 163 (73-393) U/L Vitamin B12 (211-911) pg/ml TSH 0.269 L (0.300-4.500) uIu/ml Free T4 0.92 (0.8-1.6) ng/dl Urine Color Urine Appearance (Clear) Urine pH (4.5-7.5) Ur Specific [place] (1.000-1.030) Urine Protein (Negative) Urine Glucose (UA) (Negative) Urine Ketones (Negative) Urine Blood (Negative) Urine Nitrite (Negative) Urine Bilirubin (Negative) Urine Urobilinogen (Negative) Ur Leukocyte Esterase (Negative) 05/12/18 05/12/18 05/12/18 Range/Units 11:40 12:35 16:01 WBC (4.8-10.8) K/uL RBC (4.7-6.1) M/uL Hgb (14.0-18.0) g/dL Hct (42-52) % MCV (80-100) fL MCH (25-34) pg MCHC (32-36) g/dL RDW Std Deviation (36.4-46.3) fL RDW Coeff of Rashid (11.5-14.5) % Plt Count (130-400) K/uL MPV (7.4-10.4) fL Immature Gran % (Auto) % Neut % (Auto) % Lymph % (Auto) % [place] % (Auto) % Eos % (Auto) % Baso % (Auto) % Immature Gran # (Auto) (0.00-0.02) K/uL Neut # (Auto) (1.4-6.5) K/uL Lymph # (Auto) (1.2-3.4) K/uL [place] # (Auto) (0.11-0.59) K/uL Eos # (Auto) (0-0.5) K/uL Baso # (Auto) (0-0.2) K/uL ESR (0-14) mm/hr Sodium (136-145) mmol/L Potassium (3.5-5.1) mmol/L Chloride (98-107) mmol/L Carbon Dioxide (21-32) mmol/L Anion Gap (3-11) BUN (7-18) mg/dl Creatinine (0.6-1.4) mg/dl Est Cr Clr Drug Dosing ml/min Est GFR ( Amer) Est GFR (Non-Af Amer) BUN/Creatinine Ratio (10-20) Glucose (70-99) mg/dl POC Glucose (70-99) Calcium (8.5-10.1) mg/dl Phosphorus (2.5-4.9) mg/dl Magnesium (1.8-2.4) mg/dl Total Bilirubin (0.2-1) mg/dl Direct Bilirubin (0-0.2) mg/dl AST (15-37) U/L ALT (12-78) U/L Alkaline Phosphatase (45-117) U/L Total Creatine Kinase (39-308) U/L Troponin I (0-0.045) ng/ml C-Reactive Protein < 0.29 (0-0.29) mg/dl Total Protein (6.4-8.2) gm/dl Albumin (3.4-5.0) gm/dl Globulin (2.5-4.0) gm/dl Albumin/Globulin Ratio (0.9-2) Lipase (73-393) U/L Vitamin B12 1196 H (211-911) pg/ml TSH (0.300-4.500) uIu/ml Free T4 (0.8-1.6) ng/dl Urine Color Yellow Urine Appearance Clear (Clear) Urine pH 5.0 (4.5-7.5) Ur Specific [place] 1.031 H (1.000-1.030) Urine Protein Negative (Negative) Urine Glucose (UA) 3+ H (Negative) Urine Ketones Negative (Negative) Urine Blood Negative (Negative) Urine Nitrite Negative (Negative) Urine Bilirubin Negative (Negative) Urine Urobilinogen Negative (Negative) Ur Leukocyte Esterase Negative (Negative) 05/12/18 Range/Units 18:18 WBC (4.8-10.8) K/uL RBC (4.7-6.1) M/uL Hgb (14.0-18.0) g/dL Hct (42-52) % MCV (80-100) fL MCH (25-34) pg MCHC (32-36) g/dL RDW Std Deviation (36.4-46.3) fL RDW Coeff of Rashid (11.5-14.5) % Plt Count (130-400) K/uL MPV (7.4-10.4) fL Immature Gran % (Auto) % Neut % (Auto) % Lymph % (Auto) % [place] % (Auto) % Eos % (Auto) % Baso % (Auto) % Immature Gran # (Auto) (0.00-0.02) K/uL Neut # (Auto) (1.4-6.5) K/uL Lymph # (Auto) (1.2-3.4) K/uL [place] # (Auto) (0.11-0.59) K/uL Eos # (Auto) (0-0.5) K/uL Baso # (Auto) (0-0.2) K/uL ESR (0-14) mm/hr Sodium (136-145) mmol/L Potassium (3.5-5.1) mmol/L Chloride (98-107) mmol/L Carbon Dioxide (21-32) mmol/L Anion Gap (3-11) BUN (7-18) mg/dl Creatinine (0.6-1.4) mg/dl Est Cr Clr Drug Dosing ml/min Est GFR ( Amer) Est GFR (Non-Af Amer) BUN/Creatinine Ratio (10-20) Glucose (70-99) mg/dl POC Glucose 274 H (70-99) Calcium (8.5-10.1) mg/dl Phosphorus (2.5-4.9) mg/dl Magnesium (1.8-2.4) mg/dl Total Bilirubin (0.2-1) mg/dl Direct Bilirubin (0-0.2) mg/dl AST (15-37) U/L ALT (12-78) U/L Alkaline Phosphatase (45-117) U/L Total Creatine Kinase (39-308) U/L Troponin I (0-0.045) ng/ml C-Reactive Protein (0-0.29) mg/dl Total Protein (6.4-8.2) gm/dl Albumin (3.4-5.0) gm/dl Globulin (2.5-4.0) gm/dl Albumin/Globulin Ratio (0.9-2) Lipase (73-393) U/L Vitamin B12 (211-911) pg/ml TSH (0.300-4.500) uIu/ml Free T4 (0.8-1.6) ng/dl Urine Color Urine Appearance (Clear) Urine pH (4.5-7.5) Ur Specific [place] (1.000-1.030) Urine Protein (Negative) Urine Glucose (UA) (Negative) Urine Ketones (Negative) Urine Blood (Negative) Urine Nitrite (Negative) Urine Bilirubin (Negative) Urine Urobilinogen (Negative) Ur Leukocyte Esterase (Negative) Imaging Data Radiologist's Impression: Radiology results as stated below per my review and the radiologist's interpretation: XR chest 1V portable CLINICAL HISTORY: 62 years-old Male presenting with Chest Pain. TECHNIQUE: Portable upright AP view of the chest was obtained. COMPARISON: 05/08/2017. FINDINGS: Atherosclerosis of the aortic arch. Cardiac silhouette enlarged. Left retrocardiac density likely relates to the prominent pericardial fat in the setting of mediastinal lipomatosis. No focal lung opacity. No large effusion or pneumothorax. Anterior cervical fusion hardware. Upper abdomen normal. IMPRESSION: 1. Cardiomegaly. No other convincing evidence of acute cardiopulmonary disease. Electronically signed by: Mark Dawn M.D. 05/12/2018 12:30 PM Dictated: 05/12/18 1229 Transcribed: 05/12/[address] SCAN OF THE BRAIN WITHOUT IV CONTRAST CLINICAL HISTORY: Headache. Brain tumor with recent surgery. COMPARISON STUDY: CT scans of the brain dated 05/08/2018 and 04/13/2018. TECHNIQUE: Unenhanced axial CT scan of the brain is performed from the vertex to the skull base. A dose lowering technique was utilized adhering to the principles of ALARA. CT DOSE: 614.27 mGy.cm FINDINGS: Brain parenchyma: Right temporal encephalomalacia is unchanged and consistent with a site of previous surgical resection. There is a low-attenuation extra- axial fluid collection identified along the right convexity. This is unchanged from 05/08/2018 and measures up to 10 mm in thickness. This minimally effaces the subjacent cortical sulci and causes minimal (3 mm) right to left midline shift. There is approximately 7 x 2 cm CSF attenuation fluid collection seen within the subcutaneous soft tissues overlying the right convexity on image # 13. 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 There is minimal subcortical and periventricular microangiopathic change. There is no acute hemorrhage or evidence of acute territorial ischemia by CT criteria. Ferris-white matter differentiation is preserved. Hyperdense material deep to the craniotomy site likely represents postoperative change. Ventricles, sulci, cisterns: Prominent secondary to involutional change. Intracranial vasculature: There is atherosclerotic calcification of the cavernous carotid arteries. Calvarium: Again seen are postoperative changes from right-sided craniotomy. Sinuses and mastoids: The visualized paranasal sinuses are clear. There are bilateral mastoid effusions. Orbits: The bony orbits are grossly intact. IMPRESSION: 1. Again seen are postoperative changes from right-sided craniotomy and temporal lobe resection. 2. Again seen is a low-attenuation extra-axial fluid collection along the right convexity measuring up to 1.0 cm. This is unchanged from 05/08/2018 and likely represents a hygroma. Neurosurgical assessment is advised. 3. This collection effaces the subjacent cortical sulci and causes mild right to left midline shift. 4. There is an approximately 7 x 2 x 2 cm CSF attenuation fluid collection within the soft tissues overlying the right convexity. 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 This may have modestly increased in size from 05/08/2018. 5. No acute blood products are identified. There is no evidence of acute territorial ischemia by CT criteria. Electronically signed by: Deyvi Shabazz M.D. 05/12/2018 1:05 PM ECG Data Attestation: I personally reviewed and interpreted this ECG as follows: Indication: weakness Rate (beats per minute): 67 Rhythm: normal sinus Findings: + other (Baseline artifact) and + left axis deviation; no ST depression and no ST elevation Blood Pressure Blood Pressure Findings: Normal blood pressure Blood Pressure Disposition: did not require urgent referral MDM Narrative The patient is a pleasant 62-year-old gentleman with a past medical history of GBM resection at the end of March at [facility] who presents emergency department with worsening generalized weakness and persistent headache which he has had since his surgery per hpi. Of note, the patient was seen in the emergency department on Friday for chest pain for which he had a CT scan that was negative for PE. He also had a CT head at that time which was reviewed with on-call neurosurgery at [facility] which was determined to be expected postoperative changes. Today the patient and are concerned that he has not been doing well at home since his discharge from rehab with poor oral intake/hydration in addition to inability to ambulate without assistance which is a change from his ability to ambulate with a cane when discharged from [facility]. On arrival the patient is fatigued and uncomfortable but no acute distress, afebrile stable vital signs. On exam the patient appears clinically dry. He is neurologically intact with 5/5 strength and SILT x4 extremities. EKG without evidence of acute ischemia. Chest x-ray negative for acute process. WBC within normal limits. H/H 13.2/38.1 similar to recent. Chemistry without acidosis. However, glucose 200s in the setting of the patient 's steroids. UA negative for infection however demonstrates 3+ glucose. CT head overall looks unchanged from 05/08 with possible moderately increased extra- axial fluid collection. CT findings were reviewed with [place] Roldan, [facility] [place], who agreed that findings are likely consistent with the patient's postoperative status. Additionally, agrees that admission for supportive care and hydration as well as physical therapy is reasonable with plan follow-up with Dr. Watts as scheduled. He will place and note to Dr. Watts so he is aware of patient's visit. Patient feeling BURGOS improved after IVF, compazine, and benadryl. Findings reviewed with the patient and at bedside and both feel that he has not been successful at home with rapid decline in his functional status since discharge from rehab in addition to poor oral intake. Therefore they prefer that the patient be medically optimized with hydration prior to returning to rehab. Case was discussed [place] Armendariz, [facility] [place], who will evaluate the patient for admission. Impression & Plan Dehydration, Generalized weakness Discharge Plan Visit Data *Final* Discharge Date/Time: 05/12/18 17:14 Chief Complaint: Headache ED Provider: Edgar Caro Discharge Problem: Dehydration, Generalized weakness Patient Disposition: Admitted As Inpatient Discharge Instructions Interventions: ED Discharge Assessment Last Done: 05/12/18 17:14 The scribe's documentation has been prepared under my direction and personally reviewed by me in its entirety. I confirm that the note above accurately reflects all work, treatment, procedures, and medical decision making performed by me.
[2018-05-12] MEDS ORDERED: ONDANSETRON INJ 2 MG/ML 2 ML VIAL IV PRN (17:53)
[2018-05-12] MEDS ORDERED: IBUPROFEN 600 MG TAB PO PRN (17:53)
[2018-05-12] MEDS ORDERED: CARBOHYDRATES FOR HYPOGLYCEMIA PO PRN (18:12)
[2018-05-12] MEDS ORDERED: GLUCAGON FOR INJ 1 MG VIAL IM PRN (18:12)
[2018-05-12] MEDS ORDERED: GLUCOSE 10 TABS/TUBE PO PRN (18:12)
[2018-05-12] MEDS ORDERED: GLUCOSE 40% GEL 15 GM TUBE PO PRN (18:12)
[2018-05-12] MEDS ORDERED: DEXTROSE 50% 50 ML SYRINGE IV PRN (18:12)
[2018-05-12] MEDS: SODIUM CHLORIDE 0.9% 1000ML 1,000 ML IV SCH (18:31)
[2018-05-12] MEDS: INSULIN ASPART 100 UNITS/ML 3 ML PEN SC SCH ×2 (19:03→21:18)
[2018-05-12] MEDS ORDERED: GADOBUTROL 65ML VIAL IV PRN (20:29)
[2018-05-12] MEDS: TAMSULOSIN HCL 0.4 MG CAP PO SCH (21:09)
[2018-05-12] MEDS: VERAPAMIL HCL 240 MG TABCR PO SCH (21:09)
[2018-05-12] MEDS: QUETIAPINE FUMARATE 25 MG TABLET PO SCH (21:10)
[2018-05-12] MEDS: SIMVASTATIN 20 MG TAB PO SCH (21:10)
[2018-05-12] MEDS: ACETAMINOPHEN 500 MG TAB PO SCH (21:11)
[2018-05-12] MEDS: levETIRAcetam 500 MG TAB PO SCH (21:11)
[2018-05-12] MEDS: INSULIN GLARGINE SOLOSTAR 100 UNITS/ML 3 ML PEN SC SCH (21:17)
--- NOTE | 2018-05-12 23:07 | Magnetic Resonance Report ---
MRI OF THE BRAIN WITHOUT AND WITH IV CONTRAST CLINICAL HISTORY: Recent R glioblastoma resection (temporal area). Fatigue. Weakness. COMPARISON STUDY: MRI of the brain October 03, [address] May 12, 2018. TECHNIQUE: Utilizing a 1.5 Marybeth magnet and dedicated coil, multiplanar, multiecho imaging of the br ain was performed pre and postcontrast administration. IV administration of 10 mL of Gadavist contra st was uneventful. Thin cut T1 post contrast imaging was performed. Multiplanar reconstructions were obtained. FINDINGS: Postsurgical findings consistent with a right temporal craniotomy are noted. Note is made o f a 6.3 x 2.4 x 10 cm right temporal scalp collection which has CSF signal characteristics. This is u nchanged since prior head CT. Note is made of a right temporal resection cavity. There is a right benjy ed subdural CSF signal intensity abnormality which suggests a subdural hygroma. This measures 1.1 cm in thickness. This has mild mass effect with minimal leftward midline shift. Ventricular system is un remarkable. The basilar cisterns are patent. Diffusion-weighted sequence demonstrates subtle restrict ed diffusion within the white matter of the right frontal lobe shown on axial image 17 of 48. This de monstrates punctate enhancement on the postcontrast images. There is a small amount of T1 hyperintens ity along the resection cavity which is likely postsurgical. There is moderate enhancement along the resection margin within the right temporal lobe. This is predominantly linear and favors postsurgical change. No additional sites of abnormal enhancement are present. White matter hypodensity within the right frontal, temporal and parietal lobes is noted. Flow-voids for the major intracranial vessels a re present. Fluid within the bilateral mastoid air cells, right greater than left, is noted. IMPRESSION: 1. Status post right temporal craniotomy with moderate enhancement along the right temporal resection cavity. This enhancement favors postsurgical change. Residual tumor could appear similar and therefo re short-term imaging follow-up is recommended. 2. Small focus of restricted diffusion with punctate enhancement within the right frontal lobe. This is suspicious for tumor. A subacute infarct could appear similar although is considered less likely. 3. 10 x 6.3 x 2.4 cm right temporal scalp fluid collection which has CSF signal characteristics. This suggests a pseudomeningocele that likely communicates within the underlying extra-axial fluid collec tion. 4. CSF signal intensity right subdural fluid collection with mild mass effect. This favors a subdural hygroma. Electronically signed by: Adrian Hoover M.D. 05/12/2018 11:05 PM
[2018-05-13] MEDS: SODIUM CHLORIDE 0.9% 1000ML 1,000 ML IV SCH (02:58)
[2018-05-13] MEDS: ACETAMINOPHEN 500 MG TAB PO SCH ×3 (08:21→19:28)
[2018-05-13] MEDS: LISINOPRIL 40 MG TAB PO SCH (08:21)
[2018-05-13] MEDS: ESCITALOPRAM OXALATE 20 MG TAB PO SCH (08:21)
[2018-05-13] MEDS: levETIRAcetam 500 MG TAB PO SCH ×2 (08:21→19:29)
[2018-05-13] MEDS: VERAPAMIL HCL 240 MG TABCR PO SCH ×2 (08:22→19:30)
[2018-05-13] MEDS: FEXOFENADINE HCL 180 MG TAB PO SCH (08:22)
[2018-05-13] MEDS: dexAMETHasone 1 MG TAB PO SCH (08:22)
[2018-05-13] MEDS: INSULIN ASPART 100 UNITS/ML 3 ML PEN SC SCH ×4 (08:28→20:13)
--- NOTE | 2018-05-13 10:08 | Psychiatric Consultation ---
Date of Consultation May 13, 2018 Impression / Recommendations Impression 62-year-old male from [place] who has a history of poorly controlled diabetes, glucose last stoma status post multiple resections, and depression who presents with progressive weakness discharge from a rehab hospital after a second surgery on his brain tumor. His is unable to provide for his needs at home, and placement is being pursued. He does endorse depressive symptoms, which he relates to his weakness and inability to function, but feels his current medication regimen has been helpful and wants to continue it for now. Mood also appears to have been negatively impacted by the poor situation at home , and he is hopeful that placement at a nursing facility will be a better option for him. (1) Depression: 05/13 -continue escitalopram 20 mg daily and quetiapine 50 mg nightly. Patient believes that the addition of quetiapine has been helpful, and the dose can be increased to target mood, sleep, or irritability if needed. Would attempt to use the lowest effective dose however, given his prolonged QTC on EKG yesterday (483). -Continue temazepam 30 mg at bedtime as needed for insomnia. Use only if needed , as quetiapine will also be helpful for sleep, and benzodiazepines increased fall risk and can be disinhibiting. If quetiapine adequately address his sleep , can discontinue temazepam. -No psychiatric contraindication to placement in a SNF. -Consider palliative care consult if patient interested. Depression Type: other depression Major depression recurrence: Active/Remission status: Major depression episode severity: Psychotic features: Trimester: Qualified Code(s): F32.89 - Other specified depressive episodes Present on Admission?: Yes Risk Factors Assessment Male: Yes : Yes Do You Have Access To A Gun?: No (Will be going to a nursing facility) Health Problems: Yes Mental Health Diagnoses: Yes Substance Use Disorders: No Previous Attempt: No Family History of Suicide: No Previous Psychiatric Hospitalization: No Hopelessness: No Smoker: No Protective Factors Assessment Temple Beliefs: Yes : Yes Responsible for Young Children: No Employed: No Stable Relationships: Yes Supportive Family: Yes Good Rapport with Provider: Yes Psych History Identifying Data 62-year-old male who lives in [place], has a history of glioblastoma , diabetes type 2, and depression who presented with progressive weakness and was admitted to the hospitalist service. Psychiatry was consulted for depression. Chief Complaint "Much better today, more strength". History of Present Illness Per review of records, the patient was initially diagnosed with glioblastoma in May 2017 and underwent resection at [facility]. Recurrent tumor growth necessitated a second [place] on 04/20/18 [place] [facility] complicated by a stroke on the right side of his brain. He was discharged on April 26 to [facility], where he remained until May 06. Upon returning home, he experienced progressive weakness, and his was unable to manage his needs at home. He has been eating well and his blood glucose has been uncontrolled. He has been on dexamethasone since March 2018, and higher doses have caused agitation and irritability. Upon presentation to the ER yesterday, that continuous pillowcase cutter met with him and he reported concerns about being cared for in the home. He said he had to beg his for food and pain medications, and felt so weak he was concerned that he would fall. He canceled his follow-up appointments as he was too weak to get to the car and his was not strong enough to assist him. When his joined, she reported that she has been doing everything she can for him at home, but he is too weak. She encourages him to eat and drink, but he does not listen to her. He requested that his outpatient appointments be canceled because he was too exhausted to get to them. She did not feel able to care for him at home. The option of return to [facility] was explored in the ER, and although they were willing to accept him, his did not want him to return if she felt it would be too strenuous for him. She requested that he be referred to a custodial, and wanted him to be hospitalized first. His daughter was also contacted by phone and reported that the patient has been difficult to care for her at home, and that although his has been doing everything she can and it has been too much for her. She was in agreement with placement [place] a [place] [facility] for end-of-life care. On admission, his home psychotropics were continued: Escitalopram 20 mg daily and temazepam 30 mg at bedtime as needed ( per prescription records, he has been on these since at least 05/2017, prescribed by PCP), and quetiapine 50 mg at bedtime prescribed for the first time in March 2018. On my assessment, the patient states that his mood has been "terrible" for the past 2-3 months, which he attributes to weakness and his frustration with being unable to do things. He also endorses feeling more irritable and "mean," with difficulty focusing and decreased energy. He denies decreased appetite or weight loss, anhedonia, and suicidal thoughts. He denies significant anxiety and symptoms of andrey and psychosis. Past Psychiatric History Previous Psych History: Patient reports he had symptoms of depression as far back as his 30s, but did not receive any treatment for mood until recently. He is not sure when exactly he started taking antidepressants. Outpatient Services: Psychotropic medications have been prescribed by his PCP, Brent LOPEZ, and Dr. Kaye Pries ([facility]). He denies ever seen a psychiatrist or therapist. Previous Psych Admissions: None Do You Have Access To A Gun?: No (Will be going to a nursing facility) Past Medication Trials: Patient denies Allergies Allergy/AdvReac Type Severity Reaction Status Date / Time codeine AdvReac Intermediate HALLUCINATI Verified 05/12/18 12:57 ONS Home Medications Home Medications Medication Instructions Recorded Confirmed Type dexamethasone 2 mg PO QAM 04/13/18 05/12/18 History escitalopram oxalate [Lexapro] 20 mg PO QAM 04/13/18 05/12/18 History fexofenadine 180 mg PO QAM 04/13/18 05/12/18 History lansoprazole [Prevacid] 30 mg PO DAILYBB 04/13/18 05/12/18 History lisinopril 40 mg PO QAM 04/13/18 05/12/18 History quetiapine [Seroquel] 50 mg PO HS #10 tab 04/13/18 05/12/18 Rx simvastatin 20 mg PO HS 04/13/18 05/12/18 History verapamil 240 mg PO AMHS 04/13/18 05/12/18 History acetaminophen [Tylenol Extra 500 - 1,000 mg PO TID 05/08/18 05/12/18 History Strength] ibuprofen 400 mg PO Q8 PRN 05/08/18 05/12/18 History levetiracetam 500 mg PO BID 05/08/18 05/12/18 History ondansetron 4 mg PO Q6 PRN 05/08/18 05/12/18 History sennosides [senna] 8.6 mg PO QDL 05/08/18 05/12/18 History tamsulosin [Flomax] 0.4 mg PO HS 05/08/18 05/12/18 History temazepam 30 mg PO HS PRN 05/08/18 05/12/18 History insulin aspart U-100 [Novolog 0 units SUBCUT TID 05/12/18 05/12/18 History Flexpen U-100 Insulin] insulin degludec [Tresiba 33 units SUBCUT HS 05/12/18 05/12/18 History FlexTouch U-100] Family History Patient denies any family history of mental illness or suicide. Substance Abuse History Patient denies alcohol and drug use. Personal History Living Arrangements: Home Living Arrangements Comments: With in [place] Born In: [place] Highest Grade Completed: Vocational Training Employment Status: Retired (Previously worked as a telles) Marital Status: (Second marriage, 4 years, reports he has "a very nice .") Number Of Children: 4 adult daughters from previous marriage, and 2 stepchildren Beliefs That Will Affect Care: Temple ("My tenriism is very important to me. ") Patient History Medical History Stroke (Chronic) Depression Diabetes mellitus type 2, uncontrolled Essential hypertension Glioblastoma Hyperlipidemia Brain mass (Inactive) Surgical History Hx of brain surgery x 2 --- first May 2017; second March 2018 for Glioblastoma Family History Grandmother Brain tumor Father , age 62 Lung cancer Mother , in her 70s Stroke Social History marital status: marital status details: 2x (first ); has 4 children from first marriage Current Living Situation: Spouse current occupational status: retired Other Information That Helps Us Care for You: No other: worked at the [employer] Feels Safe at Home: No Is there a partner from a previous relationship who is making you feel unsafe now?: No Any Concerns about Your Family Situation: Yes ( decline becomes mean to family members) Would You Like to Speak to Someone About Your Situation: Yes Safety Concerns: Afraid for Others in Home Smoking Status: Never smoker Hx Alcohol Use: No Hx Substance Use: No Beliefs That Will Affect Care: None Preferred Language: [place] Zealander Communication Ability: Effective Physical Exam Psychiatric Sleepy, able to awaken to answer questions, but falls back to sleep periodically throughout the interview. Apperance: appropriately dressed Lying in bed in no acute distress resting. Eye Contact: + poor eye contact (Eyes closed) Minimal, normal volume and tone. Affect: + constricted affect (to sleepy) "Better today." Thought Process: goal directed thought process Thought Content: reality based without delusions Suicidal Thoughts: denies suicidal thoughts Homicidal Thoughts: denies homicidal thoughts Hallucinations: no auditory hallucinations and no visual hallucinations Cognition: recent memory grossly intact, attention grossly intact and language grossly intact Estimated Intelligence: average estimated intelligence Insight: + fair insight Judgement: + fair judgement Vital Signs (Past 24 Hours) Last Vital Signs Temp 36.3 C L 05/13/18 08:19 Pulse 78 05/13/18 08:19 Resp 16 05/13/18 08:19 BP 110/74 05/13/18 08:19 Pulse Ox 94 05/13/18 08:19 Review of Systems All systems reviewed & are unremarkable except as noted in HPI & below Weakness, sleepiness, SOB, pain Results & Data Medications Administered Acetaminophen (Tylenol) 1,000 mg PO TID [facility] Stop: 06/11/18 20:59 Last Admin: 05/13/18 08:21 Dose: 1,000 mg Admin: 05/12/18 21:11 Dose: 1,000 mg Dexamethasone (Decadron) 2 mg PO QAM [facility] Stop: 06/12/18 08:59 Last Admin: 05/13/18 08:22 Dose: 2 mg Escitalopram Oxalate (Lexapro) 20 mg PO QAM [facility] Stop: 06/12/18 08:59 Last Admin: 05/13/18 08:21 Dose: 20 mg Fexofenadine HCl (Jenny) 180 mg PO QAM [facility] Stop: 06/12/18 08:59 Last Admin: 05/13/18 08:22 Dose: 180 mg Gadobutrol (Gadavist 65ml) 10 ml IV ONCE PRN PRN Reason: Interaction Checking Stop: 05/16/18 20:28 Last Admin: 05/12/18 20:30 Dose: 10 ml Sodium Chloride (Nss 1000ml) 1,000 mls @ 125 mls/hr IV .Q8H [facility] Stop: 05/13/18 09:52 Last Admin: 05/13/18 02:58 Dose: 125 mls/hr Infusion: 05/13/18 02:31 Dose: 125 mls/hr Admin: 05/12/18 18:31 Dose: 125 mls/hr Insulin Aspart (Novolog Flexpen) 0 units SC [facility] Stop: 06/11/18 17:52 Last Admin: 05/13/18 08:28 Dose: 5 units Admin: 05/12/18 21:18 Dose: 10 units Admin: 05/12/18 19:03 Dose: Not Given Insulin Glargine (Lantus Solostar Pen) 45 units SC [facility] Stop: 06/11/18 20:59 Last Admin: 05/12/18 21:17 Dose: 45 units Levetiracetam (Keppra) 500 mg PO BID [facility] Stop: 06/11/18 20:59 Last Admin: 05/13/18 08:21 Dose: 500 mg Admin: 05/12/18 21:11 Dose: 500 mg Lisinopril (Zestril) 40 mg PO QAM [facility] Stop: 06/12/18 08:59 Last Admin: 05/13/18 08:21 Dose: 40 mg Quetiapine Fumarate (Seroquel) 50 mg PO HS [facility] Stop: 06/11/18 20:59 Last Admin: 05/12/18 21:10 Dose: 50 mg Simvastatin (Zocor) 20 mg PO [facility] Stop: 06/11/18 20:59 Last Admin: 05/12/18 21:10 Dose: 20 mg Tamsulosin HCl (Flomax) 0.4 mg PO HS [facility] Stop: 06/11/18 20:59 Last Admin: 05/12/18 21:09 Dose: 0.4 mg Verapamil HCl (Calan Sr) 240 mg PO [facility] Stop: 06/11/18 20:59 Last Admin: 05/13/18 08:22 Dose: 240 mg Admin: 05/12/18 21:09 Dose: 240 mg
--- NOTE | 2018-05-13 11:23 | Hospitalist Progress Note ---
Date of Service May 13, 2018 Assessment & Plan (1) Generalized weakness: He was quite weak while at [facility], and after d/c from there the weakness got progressively worse. No infectious process at this time including UTI, pneumonia, influenza, etc. MRI brain on 05/12 showed 10 x 6.3 x 2.4 cm right temporal scalp fluid collection. - Likely due to dehydration from uncontrolled DM and poor PO intake - Discussed with Dr. Aubrey Watts, neuro-oncology at [facility], this morning who felt changes were stable. - PT/OT - Significantly improving as of 05/13 (2) Dehydration: Likely due to diabetes and poor PO intake as above. (3) Diabetes mellitus type 2, uncontrolled: Playing a large role in his ongoing failure to thrive. His BSGs have been 300 or higher numerous times at home. He typically takes about 15 units of novolog w/ meals along with basal insulin. - Increased Lantus to 45 units HS on admission - Molder Machine Tender consult. - DM educator consult (4) Breath, shortness: Likely due to deconditioning. Had a CTA chest on 05/08 which was negative for PEs, pneumonia, & edema. He has no history of CAD, so I think that an anginal equivalent is unlikely. - Follow up echo to rule out CHF (5) Depression: Severe, chronic, and getting worse in the midst of his recent surgery. Seen by psychiatry on 05/13 with recommendations to continue current meds and could titrate up his quetiapine. - Monitor depression and sleep (6) Glioblastoma: S/p resection in May 2017 shortly after time of diagnosis and repeat resection in March [address] [facility]. Follows with Dr. Aubrey Watts (neuro-oncology), [facility]. Office # - [phone]; Fax # - [phone]. - Discussing daily with [facility] - He advised against increasing his decadron - Supportive care. - Will need f/u with surgeon after discharge. - Continue keppra 500 BID for seizure prophylaxis. - Will get palliative care consult (7) Stroke: Perioperative, March 2018/April 2018 hospital stay. Caused mild left- sided symptoms and transient speech issues; all symptoms have improved per . - Monitor (8) Essential hypertension: BP normal at this point. - Continue home medications. (9) Hyperlipidemia: Continue simvastatin. (10) Headache: Daily, chronic. He is using Tylenol with ibuprofen every day at home. He could benefit from prophylaxis. - Continue home meds, but also consider neurology consult for prophylaxis medication (11) DVT prophylaxis: SCDs Subjective 62yo M w/ glioblastoma s/p 2 resections who presented with weakness, tiredness, and general fatigue. Feels completely better this morning. Reports we are doing great and has no complaints. Reports no fevers/chills, chest pain, shortness of breath, abdominal pain, nausea, or vomiting. Physical Exam 2 Vital Signs (Past 24 Hours): Last Vital Signs Temp 36.3 C L 05/13/18 08:19 Pulse 78 05/13/18 08:19 Resp 16 05/13/18 08:19 BP 110/74 05/13/18 08:19 Pulse Ox 94 05/13/18 08:19 Constitutional: + obese; no acute distress Swelling on the right side of head Eyes: + anicteric sclerae and PERRL; no eyelid abnormality and no conjunctival abnormality ENMT: Mouth: + oral mucosal abnormality (slightly dry MM) and + dentition abnormality (poor dentition); no oropharynx abnormality and no tongue abnormality Neck: trachea midline, no thyromegaly Respiratory: normal respiratory effort, lungs clear to auscultation Cardiovascular: RRR, no murmur, no edema Heart Sounds: normal S1 and normal S2 Vessels: posterior tibial pulses present and dorsalis pedis pulses present; no JVD Gastrointestinal (Abdomen): normal bowel sounds, soft, nontender, no hepatosplenomegaly Musculoskeletal: no cyanosis or clubbing, extremities motor strength 5/5 Skin: no rashes, warm and dry Neurologic: deep tendon reflexes 2+ bilaterally; no focal motor deficits Speech / Cognition: normal speech Psychiatric: Orientation: alert Mood: + depressed mood Lymphatic: no cervical lymphadenopathy _ (1) Depression Active/Remission status: Depression Type: other depression Major depression episode severity: Major depression recurrence: Psychotic features : Trimester: Qualified Code(s): F32.89 - Other specified depressive episodes (2) Headache Headache chronicity pattern: chronic headache Headache type: unspecified Intractability: intractable Qualified Code(s): R51 - Headache (3) Hyperlipidemia Hyperlipidemia type: mixed hyperlipidemia Qualified Code(s): E78.2 - Mixed hyperlipidemia (4) Diabetes mellitus type 2, uncontrolled Coma presence: Glycemic state: with hyperglycemia Qualified Code(s): E11.65 - Type 2 diabetes mellitus with hyperglycemia (5) Stroke CVA mechanism: unspecified Laterality of affected vessel: Precerebral and cerebral artery: Qualified Code(s): I63.9 - Cerebral infarction, unspecified
[2018-05-13] MEDS: SENNA 8.6 MG TAB PO SCH (12:42)
--- NOTE | 2018-05-13 14:21 | Palliative Care Consultation ---
Addendum entered and electronically signed by JOHN Rivers 15:27: Addendum (Blank) Addendum May 13, 2018 15:25 Spoke with patient's on the phone. We had a long discussion about what to expect with glioblastoma. was appreciative. Will give information for outpatient palliative. She confirmed patient's wishes to remain full code at this time. She was present for the completion of living will. Original Note: Date of Consultation May 13, 2018 Assessment & Plan (1) Goals of care, counseling/discussion: -62 year old male with PMH glioblastoma s/p two resections in May and March 2018, DM type 2, htn, HLD, and depression, presented with shortness of breath. Patient was diagnosed with glioblastoma in May 2017, he underwent resection soon after. Patient returned to our ED April 13, 2018 and was sent to [facility] for repeat resection a few days later. He was then sent home and was doing outpatient rehab at [facility]. He was feeling extremely weak and increasingly SOB. He came to the ED here on 05/08, CTA was done which did not show any acute process. Patient improved with some oxygen and was sent home. He returned again on 05/11 with SOB and severe weakness. He is admitted for observation for weakness and dehydration. CT and MRI of the brain were obtained-- hospitalist discussed results with patient's surgeon at [facility]. No intervention needed at this time. Patient is improving with supportive care. Palliative care is consulted to continue with supportive care and discuss goals of treatment. -I met with patient. He is awake, alert and oriented x4. Patient states his will not be in until tomorroe due to weather (I did leave his a voicemail). -Patient states, "There for a while, I thought I was done; but now I'm feeling so much better." His weakness is improving as well as his mood. Patient does suffer from severe depression related to his health issues. Patient's goal is to continue to improve and fight. -Patient completed living will today with patient data entry representative. In will, patient states that once he is end-stage, he would not want any heroic measures to keep him alive including CPR, intubation and feeding tube. However, at this time in his life he wants to remain a full code. He states that he and his continue to discuss these sorts of issues. -Would recommend patient following in Dr. Pires's outpatient palliative clinic. I will discuss this with patient and his tomorrow. -No symptom management needs at this time. -Would also like to discuss what to expect in the future with glioblastoma. -Recommend PT/OT to assess patient's functional status. He is planning to do rehab at SNF. -PPS 60%. (2) Generalized weakness: -Patient with weakness related to surgery, CVA, and dehydration. -Patient improving a great deal since admission. (3) Dehydration: -Poor PO intake. (4) Breath, shortness: -Had a CTA chest on 05/08 which was negative for PEs, pneumonia, & edema. -Apparently no history of cardiac disease. -Could be related to deconditioning. (5) Depression: -Psych consult. -On escitalopram and quetiapine. Active/Remission status: Depression Type: other depression Major depression episode severity: Major depression recurrence: Psychotic features: Trimester: Qualified Code(s): F32.89 - Other specified depressive episodes (6) Glioblastoma: -S/P resection in May 2017 shortly after time of diagnosis and repeat resection in March 2018 at [facility]. -MRI brain on 05/12 showed 10 x 6.3 x 2.4 cm right temporal scalp fluid collection. -Hospitalist has been in contact with [facility] neurosurgeon. -Patient is on decadron 2mg PO daily. [facility] physician advised against increasing. -Continued supportive care. Will need f/u after hospiatlization. -Keppra 500 BID for seizure prophylaxis. (7) Stroke: -Perioperative, March 2018/April 2018 hospital stay. -No residual deficits. CVA mechanism: unspecified Laterality of affected vessel: Precerebral and cerebral artery: Qualified Code(s): I63.9 - Cerebral infarction, unspecified Supervising Physician Co-Signing Physician Notes Patient known to me from [facility] where he was recently there for rehab. No family at bedside Patient awake, alert, positive cognitive deficits PE: No acute distress HEENT: EOMI, normal hearing, slight edema around surgical site-unchanged from exam at her [facility] Respiratory: Unlabored, clear breath sounds Cardiovascular-regular rate no edema Abdomen: Soft nontender Neuro: Oriented to person place and time, mild cognitive deficits Patient has previously stated that he wants to fight this disease Agree with above note, assessment and plan as per MONI Amanda Will continue to follow and assist with medical decision making History of Present Illness Attending Physician: Warner Cifuentes MD History of Present Illness This 62 year old male with PMH glioblastoma s/p two resections in May and March 2018, DM type 2, htn, HLD, and depression, presented with shortness of breath. Patient was diagnosed with glioblastoma in May 2017, he underwent resection soon after. Patient returned to our ED April 13, 2018 and was sent to [facility] for repeat resection a few days later. He was then sent home and was doing outpatient rehab at [facility]. He was feeling extremely weak and increasingly SOB. He came to the ED here on 05/08, CTA was done which did not show any acute process. Patient improved with some oxygen and was sent home. He returned again on 05/11 with SOB and severe weakness. He is admitted for observation for weakness and dehydration. CT and MRI of the brain were obtained-- hospitalist discussed results with patient's surgeon at [facility]. No intervention needed at this time. Patient is improving with supportive care. Palliative care is consulted to continue with supportive care and discuss goals of treatment. Thank you kindly for the consult on this maria eugenia patient. Allergies Allergy/AdvReac Type Severity Reaction Status Date / Time codeine AdvReac Intermediate HALLUCINATI Verified 05/12/18 12:57 ONS Home Medications Home Medications Medication Instructions Recorded Confirmed Type dexamethasone 2 mg PO QAM 04/13/18 05/12/18 History escitalopram oxalate [Lexapro] 20 mg PO QAM 04/13/18 05/12/18 History fexofenadine 180 mg PO QAM 04/13/18 05/12/18 History lansoprazole [Prevacid] 30 mg PO DAILYBB 04/13/18 05/12/18 History lisinopril 40 mg PO QAM 04/13/18 05/12/18 History quetiapine [Seroquel] 50 mg PO HS #10 tab 04/13/18 05/12/18 Rx simvastatin 20 mg PO HS 04/13/18 05/12/18 History verapamil 240 mg PO AMHS 04/13/18 05/12/18 History acetaminophen [Tylenol Extra 500 - 1,000 mg PO TID 05/08/18 05/12/18 History Strength] ibuprofen 400 mg PO Q8 PRN 05/08/18 05/12/18 History levetiracetam 500 mg PO BID 05/08/18 05/12/18 History ondansetron 4 mg PO Q6 PRN 05/08/18 05/12/18 History sennosides [senna] 8.6 mg PO QDL 05/08/18 05/12/18 History tamsulosin [Flomax] 0.4 mg PO HS 05/08/18 05/12/18 History temazepam 30 mg PO HS PRN 05/08/18 05/12/18 History insulin aspart U-100 [Novolog 0 units SUBCUT TID 05/12/18 05/12/18 History Flexpen U-100 Insulin] insulin degludec [Tresiba 33 units SUBCUT HS 05/12/18 05/12/18 History FlexTouch U-100] Patient History Medical History Stroke (Chronic) Depression Diabetes mellitus type 2, uncontrolled Essential hypertension Glioblastoma Hyperlipidemia Brain mass (Inactive) Surgical History Hx of brain surgery x 2 --- first May 2017; second March 2018 for Glioblastoma Family History Grandmother Brain tumor Father , age 62 Lung cancer Mother , in her 70s Stroke Social History marital status: marital status details: 2x (first ); has 4 children from first marriage Current Living Situation: Spouse current occupational status: retired Other Information That Helps Us Care for You: No other: worked at the [employer] Feels Safe at Home: No Is there a partner from a previous relationship who is making you feel unsafe now?: No Any Concerns about Your Family Situation: Yes ( decline becomes mean to family members) Would You Like to Speak to Someone About Your Situation: Yes Safety Concerns: Afraid for Others in Home Smoking Status: Never smoker Hx Alcohol Use: No Hx Substance Use: No Beliefs That Will Affect Care: Samaritan ("My alevism is very important to me. ") Preferred Language: Macedonian Communication Ability: Effective Review of Systems Constitutional: + weakness; no fever and no chills Respiratory: no cough, no dyspnea and no dyspnea on exertion Cardiovascular: no chest pain and no edema Gastrointestinal: no abdominal pain, no nausea and no vomiting Neurologic: + generalized weakness and + headache(s); no confusion Psychiatric: + depression; no anxiety Physical Exam 2 Vital Signs (Past 24 Hours): Last Vital Signs Temp 36.5 C 05/13/18 11:47 Pulse 62 05/13/18 11:47 Resp 16 05/13/18 11:47 BP 129/80 05/13/18 11:47 Pulse Ox 96 05/13/18 11:47 Constitutional: + overweight; no acute distress Eyes: PERRL, conjunctivae normal, anicteric sclerae ENMT: external ear and nose normal, oropharynx normal Ears: no hearing impairment Neck: normal visual inspection, trachea midline and + thick neck Respiratory: normal respiratory effort, lungs clear to auscultation Cardiovascular: RRR, no murmur, no edema Vessels: dorsalis pedis pulses present Gastrointestinal (Abdomen): Inspection/Auscultation: abdomen normal to inspection and normal bowel sounds; abdomen not distended Percussion/ Palpation: abdomen soft; abdomen nontender Musculoskeletal: Head/Neck/Chest: head normal to inspection (lateral sides of head are edematous, scars from previous surgery noted) and no scalp tenderness Skin: no rashes, warm and dry Neurologic: awake; not confused Psychiatric: Orientation: alert and oriented x 3 Eye Contact: good eye contact Mood: no depressed mood (but does admit to terrible depression related to his health) Insight: + limited insight Judgement: good judgement Time Spent Midlevel 50 minutes with >50% of time spent at bedside with patient discussing his condition and goals of care.
[2018-05-13] MEDS: TEMAZEPAM 15 MG CAPSULE PO PRN (19:28)
[2018-05-13] MEDS: TAMSULOSIN HCL 0.4 MG CAP PO SCH (19:29)
[2018-05-13] MEDS: SIMVASTATIN 20 MG TAB PO SCH (19:30)
[2018-05-13] MEDS: QUETIAPINE FUMARATE 25 MG TABLET PO SCH (19:31)
[2018-05-13] MEDS: INSULIN GLARGINE SOLOSTAR 100 UNITS/ML 3 ML PEN SC SCH (20:13)
[2018-05-14 06:22] LABS: BUN Creatinine Ratio 33.2 (10-20); Calcium 8.4 mg/dl (8.5-10.1); Creatinine Clr Calc Pharmacy 109.2 ml/min; Est GFR (African American) 111.3; Est GFR (Non-African American) 96.1; Potassium 3.8 mmol/L (3.5-5.1)
[2018-05-14] MEDS: LISINOPRIL 40 MG TAB PO SCH (08:15)
[2018-05-14] MEDS: VERAPAMIL HCL 240 MG TABCR PO SCH ×2 (08:15→20:55)
[2018-05-14] MEDS: levETIRAcetam 500 MG TAB PO SCH ×2 (08:15→20:54)
[2018-05-14] MEDS: ESCITALOPRAM OXALATE 20 MG TAB PO SCH (08:15)
[2018-05-14] MEDS: ACETAMINOPHEN 500 MG TAB PO SCH ×3 (08:16→20:53)
[2018-05-14] MEDS: INSULIN ASPART 100 UNITS/ML 3 ML PEN SC SCH ×4 (08:21→20:59)
[2018-05-14] MEDS ORDERED: PHARMACY GLYCEMIC MGMT CONSULT PRN (08:24)
[2018-05-14] MEDS: dexAMETHasone 1 MG TAB PO SCH (08:50)
[2018-05-14] MEDS: FEXOFENADINE HCL 180 MG TAB PO SCH (08:50)
[2018-05-14] MEDS: SENNA 8.6 MG TAB PO SCH (11:47)
--- NOTE | 2018-05-14 13:50 | Pharmacy Report ---
Pharmacy Glycemic Short Note 2 - Date of Service May 14, 2018 - Glycemic Short BSG Results (Last 24 hours): 05/13/18 05/13/18 05/14/18 16:48 20:01 05:11 Glucose 80 POC Glucose 230 H 212 H 05/14/18 05/14/18 07:41 11:44 Glucose POC Glucose 81 158 H OUTPATIENT ANTIDIABETIC REGIMEN: * Insulin degludac 33 units SQ qHS * Novolog TID * HbA1c: pending with AM labs ASSESSMENT: * Mr Lake is a 62yo diabetic gentleman admitted with dehydration/ uncontrolled DM. PMH is significant for glioblastoma, palliative consult placed today. * Pharmacy was consulted this morning for glycemic management. * Fasting BSG this am was below goal (80 mg/dL). It looks like Lantus has been dosed higher than patient's normal basal dose at home. Will reduce to home dose beginning this evening. * Patient is receiving Dexamethasone 2mg PO daily, but this is a chronic medication that patient was taking as an outpatient. PLAN FOR INPATIENT GLYCEMIC CONTROL: * Basal insulin -- decrease * Lantus 33 units SQ HS * Bolus insulin * NovoLog per scale ACHS or Q6hrs while NPO * Goal Range: Low 120 mg/dL - High 160 mg/dL * Correction Factor: 15 mg/dL/unit * Nutritional / Prandial insulin per carb ratio of 1 unit per 5 grams CHO consumed PLAN FOR DISCHARGE: * pending A1c results tomorrow
--- NOTE | 2018-05-14 14:47 | Hospitalist Progress Note ---
Date of Service May 14, 2018 Assessment & Plan (1) Generalized weakness: He was quite weak while at [facility] and after d/c from there the weakness got progressively worse. No infectious process at this time including UTI, pneumonia, influenza, etc. MRI brain on 05/12 showed 10 x 6.3 x 2.4 cm right temporal scalp fluid collection which is likely CSF. - Likely due to dehydration from uncontrolled DM and poor PO intake - Discussed with Dr. Aubrey Watts, neuro-oncology at [facility], on 05/13 who felt changes were stable. - PT/OT recommend SNF (2) Dehydration: Likely due to diabetes and poor PO intake as above. (3) Diabetes mellitus type 2, uncontrolled: Playing a large role in his ongoing failure to thrive. His BSGs have been 300 or higher numerous times at home. He typically takes about 15 units of novolog w/ meals along with basal insulin. - Increased Lantus to 45 units QHS on admission - Produce Team Member consult - DM educator consult (4) Breath, shortness: Likely due to deconditioning. Had a CTA chest on 05/08 which was negative for PEs, pneumonia, & edema. Echo on 05/13 had EF of 60-65% with no other valvular issues. He has no history of CAD, so I think that an anginal equivalent is unlikely. - Work with PT - rehab (5) Depression: Severe, chronic, and getting worse in the midst of his recent surgery. Seen by psychiatry on 05/13 with recommendations to continue current meds and could titrate up his quetiapine if sleep is an issue. - Monitor depression and sleep (6) Glioblastoma: S/p resection in May 2017 shortly after time of diagnosis and repeat resection in March [address] [facility]. Follows with Dr. Aubrey Watts (neuro-oncology), [facility]. Office # - [phone]; Fax # - [phone]. - Discussing daily with [facility] - He advised against increasing his decadron - Supportive care. - Will need f/u with surgeon after discharge. - Continue keppra 500 BID for seizure prophylaxis. - Palliative care consult appreciated (7) Stroke: Perioperative, March 2018/April 2018 hospital stay. Caused mild left- sided symptoms and transient speech issues; all symptoms have improved per . - Monitor (8) Essential hypertension: BP normal at this point. - Continue home medications. (9) Hyperlipidemia: Continue simvastatin. (10) Headache: Daily, chronic. He is using Tylenol with ibuprofen every day at home. He could benefit from prophylaxis. - Continue home meds, but also consider neurology consult for prophylaxis medication (11) DVT prophylaxis: SCDs Subjective 62yo M w/ glioblastoma s/p 2 resections who presented with weakness, tiredness, and general fatigue. Feels somewhat weaker today. Somewhat also dispirited about having to leave the hospital. Reports no fevers/chills, chest pain, shortness of breath, abdominal pain, nausea, or vomiting. Physical Exam 2 Vital Signs (Past 24 Hours): Last Vital Signs Temp 36.3 C L 05/14/18 11:00 Pulse 87 05/14/18 11:00 Resp 20 05/14/18 11:00 BP 135/80 05/14/18 11:00 Pulse Ox 96 05/14/18 11:00 Constitutional: + obese; no acute distress Eyes: + anicteric sclerae and PERRL; no eyelid abnormality and no conjunctival abnormality ENMT: Mouth: no oropharynx abnormality and no tongue abnormality Neck: trachea midline, no thyromegaly Respiratory: normal respiratory effort, lungs clear to auscultation Cardiovascular: RRR, no murmur, no edema Heart Sounds: normal S1 and normal S2 Vessels: posterior tibial pulses present and dorsalis pedis pulses present; no JVD Gastrointestinal (Abdomen): normal bowel sounds, soft, nontender, no hepatosplenomegaly Musculoskeletal: no cyanosis or clubbing, extremities motor strength 5/5 Skin: no rashes, warm and dry Neurologic: deep tendon reflexes 2+ bilaterally; no focal motor deficits Speech / Cognition: normal speech Psychiatric: Orientation: alert Mood: + depressed mood Lymphatic: no cervical lymphadenopathy _ (1) Diabetes mellitus type 2, uncontrolled Glycemic state: with hyperglycemia Coma presence: Qualified Code(s): E11.65 - Type 2 diabetes mellitus with hyperglycemia (2) Depression Depression Type: other depression Major depression recurrence: Active/ Remission status: Major depression episode severity: Psychotic features: Trimester: Qualified Code(s): F32.89 - Other specified depressive episodes (3) Stroke CVA mechanism: unspecified Precerebral and cerebral artery: Laterality of affected vessel: Qualified Code(s): I63.9 - Cerebral infarction, unspecified (4) Hyperlipidemia Hyperlipidemia type: mixed hyperlipidemia Qualified Code(s): E78.2 - Mixed hyperlipidemia (5) Headache Headache type: unspecified Headache chronicity pattern: chronic headache Intractability: intractable Qualified Code(s): R51 - Headache
[2018-05-14] MEDS: TEMAZEPAM 15 MG CAPSULE PO PRN (20:53)
[2018-05-14] MEDS: SIMVASTATIN 20 MG TAB PO SCH (20:54)
[2018-05-14] MEDS: QUETIAPINE FUMARATE 25 MG TABLET PO SCH (20:54)
[2018-05-14] MEDS: TAMSULOSIN HCL 0.4 MG CAP PO SCH (20:55)
[2018-05-14] MEDS: INSULIN GLARGINE SOLOSTAR 100 UNITS/ML 3 ML PEN SC SCH (21:00)
[2018-05-15 06:03] LABS: Estimated Average Glucose 203 mg/dl
[2018-05-15] MEDS: levETIRAcetam 500 MG TAB PO SCH ×2 (08:30→19:59)
[2018-05-15] MEDS: dexAMETHasone 1 MG TAB PO SCH (08:30)
[2018-05-15] MEDS: ACETAMINOPHEN 500 MG TAB PO SCH ×3 (08:30→19:56)
[2018-05-15] MEDS: LISINOPRIL 40 MG TAB PO SCH (08:31)
[2018-05-15] MEDS: ESCITALOPRAM OXALATE 20 MG TAB PO SCH (08:31)
[2018-05-15] MEDS: VERAPAMIL HCL 240 MG TABCR PO SCH ×2 (08:31→19:59)
[2018-05-15] MEDS: FEXOFENADINE HCL 180 MG TAB PO SCH (08:32)
[2018-05-15] MEDS: INSULIN ASPART 100 UNITS/ML 3 ML PEN SC SCH ×4 (08:33→20:14)
[2018-05-15] MEDS: SENNA 8.6 MG TAB PO SCH (12:43)
--- NOTE | 2018-05-15 13:26 | Hospitalist Progress Note ---
Date of Service May 15, 2018 Assessment & Plan (1) Generalized weakness: He was quite weak while at [facility] and after d/c from there the weakness got progressively worse. No infectious process at this time including UTI, pneumonia, influenza, etc. MRI brain on 05/12 showed 10 x 6.3 x 2.4 cm right temporal scalp fluid collection which is likely CSF. CK on 05/15 was normal (20). No focal weakness on exam, and in fact has 5/5 strength throughout. - Discussed with Dr. Aubrey Watts, neuro-oncology at [facility], on 05/13 who felt changes were stable. - Likely due to dehydration from uncontrolled DM and poor PO intake, along with some aspect of depression from his medical outlook - PT/OT recommend SNF (2) Dehydration: Likely due to diabetes and poor PO intake as above. (3) Diabetes mellitus type 2, uncontrolled: Playing a role in his ongoing failure to thrive. His BSGs have been 300 or higher numerous times at home. He typically takes about 15 units of novolog w / meals along with 33 units of basal insulin. - Kept home Lantus at 33 units QHS - Glycemic pharmacist is adjusting meal-time ratio as it appears most of hyperglycemia is from meal-time highs (4) Breath, shortness: Likely due to deconditioning. Had a CTA chest on 05/08 which was negative for PEs, pneumonia, & edema. Echo on 05/13 had EF of 60-65% with no other valvular issues. He has no history of CAD, so I think that an anginal equivalent is unlikely. - Worked with PT - rehab (5) Depression: Severe, chronic, and getting worse in the midst of his recent surgery. Seen by psychiatry on 05/13 with recommendations to continue current meds and could titrate up his quetiapine if sleep is an issue. - Monitor depression and sleep - As of 05/15, he reports his mood is very low and reports continued overall weakness. Sleep, however, has been ok. (6) Glioblastoma: S/p resection in May 2017 shortly after time of diagnosis and repeat resection in March [address] [facility]. Follows with Dr. Aubrey Watts (neuro-oncology), [facility]. Office # - [phone]; Fax # - [phone]. - Discussing daily with [facility] - He advised against increasing his Decadron - Supportive care. - Will need f/u with surgeon after discharge. - Continue keppra 500 BID for seizure prophylaxis. - Palliative care consult appreciated (7) Stroke: Perioperative, March 2018/April 2018 hospital stay. Caused mild left- sided symptoms and transient speech issues; all symptoms have improved per . - Monitor (8) Essential hypertension: BP normal at this point. - Continued home medications. (9) Hyperlipidemia: Initially continued simvastatin; however, stopped on 05/15 for continued subjective weakness. Despite a normal CK, given his poor prognosis, I'm not sure that primary cardiac prevention is really needed. - Held simvastatin (10) Headache: Daily, chronic. He is using Tylenol with ibuprofen every day at home. He could benefit from prophylaxis. - Continue home meds, but also consider neurology consult for prophylaxis medication (11) DVT prophylaxis: SCDs Subjective 62yo M w/ glioblastoma s/p 2 resections who presented with weakness, tiredness, and general fatigue. Feels somewhat weaker today. Still somewhat also dispirited about having to leave the hospital. No focal complaints. Reports no fevers/chills, chest pain, shortness of breath, abdominal pain, nausea, or vomiting. Physical Exam 2 Vital Signs (Past 24 Hours): Last Vital Signs Temp 36.5 C 05/15/18 11:31 Pulse 70 05/15/18 11:31 Resp 16 05/15/18 11:31 BP 117/75 05/15/18 11:31 Pulse Ox 97 05/15/18 11:31 Constitutional: + obese; no acute distress Eyes: + anicteric sclerae and PERRL; no eyelid abnormality and no conjunctival abnormality ENMT: Mouth: + oral mucosal abnormality (slightly dry MM) and + dentition abnormality (poor dentition); no oropharynx abnormality and no tongue abnormality Neck: trachea midline, no thyromegaly Respiratory: normal respiratory effort, lungs clear to auscultation Cardiovascular: RRR, no murmur, no edema Heart Sounds: normal S1 and normal S2 Vessels: posterior tibial pulses present and dorsalis pedis pulses present; no JVD Gastrointestinal (Abdomen): normal bowel sounds, soft, nontender, no hepatosplenomegaly Musculoskeletal: no cyanosis or clubbing, extremities motor strength 5/5 Skin: no rashes, warm and dry Neurologic: moves all extremities; no focal motor deficits Speech / Cognition: normal speech 5/5 strength throughout Psychiatric: Orientation: alert Mood: + depressed mood Lymphatic: no cervical lymphadenopathy _ (1) Diabetes mellitus type 2, uncontrolled Glycemic state: with hyperglycemia Coma presence: Qualified Code(s): E11.65 - Type 2 diabetes mellitus with hyperglycemia (2) Depression Depression Type: other depression Major depression recurrence: Active/ Remission status: Major depression episode severity: Psychotic features: Trimester: Qualified Code(s): F32.89 - Other specified depressive episodes (3) Stroke CVA mechanism: unspecified Precerebral and cerebral artery: Laterality of affected vessel: Qualified Code(s): I63.9 - Cerebral infarction, unspecified (4) Hyperlipidemia Hyperlipidemia type: mixed hyperlipidemia Qualified Code(s): E78.2 - Mixed hyperlipidemia (5) Headache Headache type: unspecified Headache chronicity pattern: chronic headache Intractability: intractable Qualified Code(s): R51 - Headache
[2018-05-15] MEDS: TEMAZEPAM 15 MG CAPSULE PO PRN (19:55)
[2018-05-15] MEDS: TAMSULOSIN HCL 0.4 MG CAP PO SCH (19:57)
[2018-05-15] MEDS: QUETIAPINE FUMARATE 25 MG TABLET PO SCH (19:58)
[2018-05-15] MEDS: INSULIN GLARGINE SOLOSTAR 100 UNITS/ML 3 ML PEN SC SCH (20:06)
[2018-05-16] MEDS: ESCITALOPRAM OXALATE 20 MG TAB PO SCH (08:45)
[2018-05-16] MEDS: FEXOFENADINE HCL 180 MG TAB PO SCH (08:45)
[2018-05-16] MEDS: dexAMETHasone 1 MG TAB PO SCH (08:45)
[2018-05-16] MEDS: ACETAMINOPHEN 500 MG TAB PO SCH ×3 (08:45→18:05)
[2018-05-16] MEDS: levETIRAcetam 500 MG TAB PO SCH ×2 (08:45→22:29)
[2018-05-16] MEDS: VERAPAMIL HCL 240 MG TABCR PO SCH ×2 (08:45→22:28)
[2018-05-16] MEDS: LISINOPRIL 40 MG TAB PO SCH (08:45)
[2018-05-16] MEDS: INSULIN ASPART 100 UNITS/ML 3 ML PEN SC SCH ×4 (08:46→22:27)
--- NOTE | 2018-05-16 10:22 | Pharmacy Report ---
Pharmacy Glycemic Short Note 2 - Date of Service May 16, 2018 - Glycemic Short BSG Results (Last 24 hours): 05/15/18 05/15/18 05/15/18 11:53 16:51 20:10 POC Glucose 191 H 214 H 246 H 05/16/18 07:31 POC Glucose 118 H OUTPATIENT ANTIDIABETIC REGIMEN: * Insulin degludec 33 units SQ qHS * Novolog TID * (also on chronic dexamethasone 2 mg daily) * A1c = 8.7% on 05/15/18 ASSESSMENT: 05/16 * Mr. Lake received 62 units of insulin yesterday, 33 of this was basal * No change to causes of insulin resistance, remains on once daily Decadron * Fasting BSG = 118 mg/dL; this is after two days of Lantus 33 units and is stable * Postprandial BSGs all above 180 mg/dL - will tighten CF/CR to provide more postprandial control 05/14 * Mr Lake is a 62yo diabetic gentleman admitted with dehydration/ uncontrolled DM. PMH is significant for glioblastoma, palliative consult placed today. * Pharmacy was consulted this morning for glycemic management. * Fasting BSG this am was below goal (80 mg/dL). It looks like Lantus has been dosed higher than patient's normal basal dose at home. Will reduce to home dose beginning this evening. * Patient is receiving Dexamethasone 2mg PO daily, but this is a chronic medication that patient was taking as an outpatient. PLAN FOR INPATIENT GLYCEMIC CONTROL: * Basal insulin -- no change * Lantus 33 units SQ HS * Bolus insulin - tighten CF/CR * NovoLog per scale ACHS or Q6hrs while NPO * Goal Range: Low 120 mg/dL - High 150 mg/dL * Correction Factor: 12 mg/dL/unit * Nutritional / Prandial insulin per carb ratio of 1 unit per 4 grams CHO consumed PLAN FOR DISCHARGE: * A1c is slightly improved from two years ago. This may be just above goal for him, based upon comorbidities. If anything, would recommend more Novolog being given d/t postprandial effects from steroids.
[2018-05-16] MEDS: SENNA 8.6 MG TAB PO SCH (11:57)
--- NOTE | 2018-05-16 13:43 | Hospitalist Progress Note ---
Date of Service May 16, 2018 Assessment & Plan (1) Generalized weakness: He was quite weak while at [facility] and after d/c from there the weakness got progressively worse. No infectious process at this time including UTI, pneumonia, influenza, etc. MRI brain on 05/12 showed 10 x 6.3 x 2.4 cm right temporal scalp fluid collection which is likely CSF. CK on 05/15 was normal (20). No focal weakness on exam, and in fact has 5/5 strength throughout. - Discussed with Dr. Aubrey Watts, neuro-oncology at [place], on 05/13 who felt changes were stable. - Likely due to dehydration from uncontrolled DM and poor PO intake, along with some aspect of depression from his medical outlook - PT/OT recommend SNF (2) Dehydration: Likely due to diabetes and poor PO intake as above. (3) Diabetes mellitus type 2, uncontrolled: Playing a role in his ongoing failure to thrive. His BSGs have been 300 or higher numerous times at home. He typically takes about 15 units of novolog w / meals along with 33 units of basal insulin. - Kept home Lantus at 33 units QHS - Glycemic pharmacist is adjusting meal-time ratio as it appears most of hyperglycemia is from meal-time highs - Appears that his dinner is what pushes him higher, then slightly lower in the morning (4) Breath, shortness: Likely due to deconditioning. Had a CTA chest on 05/08 which was negative for PEs, pneumonia, & edema. Echo on 05/13 had EF of 60-65% with no other valvular issues. He has no history of CAD, so I think that an anginal equivalent is unlikely. - Worked with PT - rehab (5) Depression: Severe, chronic, and getting worse in the midst of his recent surgery. Seen by psychiatry on 05/13 with recommendations to continue current meds and could titrate up his quetiapine if sleep is an issue. - Monitor depression and sleep - As of 05/15, he reports his mood is very low and reports continued overall weakness. Sleep, however, has been ok. (6) Glioblastoma: S/p resection in May 2017 shortly after time of diagnosis and repeat resection in March 2018 at [facility]. Follows with Dr. Aubrey Watts (neuro-oncology), [facility]. Office # - [phone]; Fax # - [phone]. - Discussing daily with [place] - He advised against increasing his Decadron - Supportive care. - Will need f/u with surgeon after discharge. - Continue keppra 500 BID for seizure prophylaxis. - Palliative care consult appreciated (7) Stroke: Perioperative, March 2018/April 2018 hospital stay. Caused mild left- sided symptoms and transient speech issues; all symptoms have improved per . - Monitor (8) Essential hypertension: BP normal at this point. - Continued home medications. (9) Hyperlipidemia: Initially continued simvastatin; however, stopped on 05/15 for continued subjective weakness. Despite a normal CK, given his poor prognosis, I'm not sure that primary cardiac prevention is really needed. - Held simvastatin (10) Headache: Daily, chronic. He is using Tylenol with ibuprofen every day at home. He could benefit from prophylaxis. - Continue home meds, but also consider neurology consult for prophylaxis medication (11) DVT prophylaxis: SCDs Subjective 62yo M w/ glioblastoma s/p 2 resections who presented with weakness, tiredness, and general fatigue. Feels somewhat stronger today. Still somewhat also dispirited about having to leave the hospital. No focal complaints. Reports no fevers/chills, chest pain, shortness of breath, abdominal pain, nausea, or vomiting. Physical Exam 2 Vital Signs (Past 24 Hours): Last Vital Signs Temp 37.0 C 05/16/18 11:44 Pulse 99 H 05/16/18 11:44 Resp 16 05/16/18 11:44 BP 112/74 05/16/18 11:44 Pulse Ox 92 05/16/18 11:44 Constitutional: + obese; no acute distress Eyes: + anicteric sclerae and PERRL; no eyelid abnormality and no conjunctival abnormality ENMT: Mouth: + oral mucosal abnormality (slightly dry MM) and + dentition abnormality (poor dentition); no oropharynx abnormality and no tongue abnormality Neck: trachea midline, no thyromegaly Respiratory: normal respiratory effort, lungs clear to auscultation Cardiovascular: RRR, no murmur, no edema Heart Sounds: normal S1 and normal S2 Vessels: posterior tibial pulses present and dorsalis pedis pulses present; no JVD Gastrointestinal (Abdomen): normal bowel sounds, soft, nontender, no hepatosplenomegaly Musculoskeletal: no cyanosis or clubbing, extremities motor strength 5/5 Skin: no rashes, warm and dry Neurologic: deep tendon reflexes 2+ bilaterally and moves all extremities; no focal motor deficits Speech / Cognition: normal speech Psychiatric: Orientation: alert; + not oriented x 3 (could not tell me the day but knew the year and where he was (hospital)) Mood: + depressed mood Lymphatic: no cervical lymphadenopathy _ (1) Diabetes mellitus type 2, uncontrolled Glycemic state: with hyperglycemia Coma presence: Qualified Code(s): E11.65 - Type 2 diabetes mellitus with hyperglycemia (2) Depression Depression Type: other depression Major depression recurrence: Active/ Remission status: Major depression episode severity: Psychotic features: Trimester: Qualified Code(s): F32.89 - Other specified depressive episodes (3) Stroke CVA mechanism: unspecified Precerebral and cerebral artery: Laterality of affected vessel: Qualified Code(s): I63.9 - Cerebral infarction, unspecified (4) Hyperlipidemia Hyperlipidemia type: mixed hyperlipidemia Qualified Code(s): E78.2 - Mixed hyperlipidemia (5) Headache Headache type: unspecified Headache chronicity pattern: chronic headache Intractability: intractable Qualified Code(s): R51 - Headache
[2018-05-16] MEDS: INSULIN GLARGINE SOLOSTAR 100 UNITS/ML 3 ML PEN SC SCH (22:27)
[2018-05-16] MEDS: QUETIAPINE FUMARATE 25 MG TABLET PO SCH (22:28)
[2018-05-16] MEDS: TAMSULOSIN HCL 0.4 MG CAP PO SCH (22:29)
[2018-05-17 07:34] LABS: BUN Creatinine Ratio 36.6 (10-20); Calcium 8.4 mg/dl (8.5-10.1); Creatinine Clr Calc Pharmacy 97.8 ml/min; Est GFR (African American) 106.5; Est GFR (Non-African American) 91.9; Magnesium 2.1 mg/dl (1.8-2.4); Potassium 3.9 mmol/L (3.5-5.1)
[2018-05-17] MEDS: ESCITALOPRAM OXALATE 20 MG TAB PO SCH (08:03)
[2018-05-17] MEDS: FEXOFENADINE HCL 180 MG TAB PO SCH (08:03)
[2018-05-17] MEDS: LISINOPRIL 40 MG TAB PO SCH (08:03)
[2018-05-17] MEDS: VERAPAMIL HCL 240 MG TABCR PO SCH ×2 (08:03→20:26)
[2018-05-17] MEDS: dexAMETHasone 1 MG TAB PO SCH (08:03)
[2018-05-17] MEDS: ACETAMINOPHEN 500 MG TAB PO SCH ×3 (08:04→20:29)
[2018-05-17] MEDS: INSULIN ASPART 100 UNITS/ML 3 ML PEN SC SCH ×5 (08:04→20:34)
[2018-05-17] MEDS: levETIRAcetam 500 MG TAB PO SCH ×2 (08:04→20:28)
--- NOTE | 2018-05-17 12:21 | Pharmacy Report ---
Pharmacy Glycemic Short Note 2 - Date of Service May 17, 2018 - Glycemic Short BSG Results (Last 24 hours): 05/16/18 05/16/18 05/17/18 16:47 20:37 06:31 Glucose 98 POC Glucose 110 H 158 H 05/17/18 05/17/18 07:24 11:31 Glucose POC Glucose 103 H 203 H OUTPATIENT ANTIDIABETIC REGIMEN: * Insulin degludec 33 units SQ qHS * Novolog TID * (also on chronic dexamethasone 2 mg daily) * A1c = 8.7% on 05/15/18 ASSESSMENT: 05/17 * Christiano received 90 units of insulin yesterday * Fasting BSG remains well controlled * Postprandial BSGs improved with tightening of CF/CR but he continues to have higher elevations prior to lunch. Will make an adjustment to breakfast CR only , to prevent the pre-lunch spike. 05/16 * Mr. Lake received 62 units of insulin yesterday, 33 of this was basal * No change to causes of insulin resistance, remains on once daily Decadron * Fasting BSG = 118 mg/dL; this is after two days of Lantus 33 units and is stable * Postprandial BSGs all above 180 mg/dL - will tighten CF/CR to provide more postprandial control 05/14 * Mr Lake is a 62yo diabetic gentleman admitted with dehydration/ uncontrolled DM. PMH is significant for glioblastoma, palliative consult placed today. * Pharmacy was consulted this morning for glycemic management. * Fasting BSG this am was below goal (80 mg/dL). It looks like Lantus has been dosed higher than patient's normal basal dose at home. Will reduce to home dose beginning this evening. * Patient is receiving Dexamethasone 2mg PO daily, but this is a chronic medication that patient was taking as an outpatient. PLAN FOR INPATIENT GLYCEMIC CONTROL: * Basal insulin -- no change * Lantus 33 units SQ HS * Bolus insulin - tighten CR for breakfast only * NovoLog per scale ACHS or Q6hrs while NPO * Goal Range: Low 120 mg/dL - High 150 mg/dL * Correction Factor: 12 mg/dL/unit * Nutritional / Prandial insulin per carb ratio of 1 unit per 4 grams CHO consumed; 1 unit per 3 gm w/ breakfast only PLAN FOR DISCHARGE: * A1c is slightly improved from two years ago. This may be just above goal for him, based upon comorbidities. If anything, would recommend more Novolog being given d/t postprandial effects from steroids.
[2018-05-17] MEDS: SENNA 8.6 MG TAB PO SCH (12:45)
--- NOTE | 2018-05-17 16:35 | Hospitalist Progress Note ---
Date of Service May 17, 2018 Assessment & Plan (1) Generalized weakness: He was quite weak while at [facility] and after d/c from there the weakness got progressively worse. No infectious process at this time including UTI, pneumonia, influenza, etc. MRI brain on 05/12 showed 10 x 6.3 x 2.4 cm right temporal scalp fluid collection which is likely CSF. CK on 05/15 was normal (20). No focal weakness on exam, and in fact has 5/5 strength throughout. - Discussed with Dr. Aubrey Watts, neuro-oncology at [place], on 05/13 who felt changes were stable. - Likely due to dehydration from uncontrolled DM and poor PO intake, along with some aspect of depression from his medical outlook - Plan for [facility] as soon as approved by insurance (likely Friday) (2) Dehydration: Likely due to diabetes and poor PO intake as above. (3) Diabetes mellitus type 2, uncontrolled: Playing a role in his ongoing failure to thrive. His BSGs have been 300 or higher numerous times at home. He typically takes about 15 units of novolog w / meals along with 33 units of basal insulin. - Kept home Lantus at 33 units QHS - Glycemic pharmacist is adjusting meal-time ratio as it appears most of hyperglycemia is from meal-time highs - Improved on 05/17 with higher meal-time coverage (4) Breath, shortness: Likely due to deconditioning. Had a CTA chest on 05/08 which was negative for PEs, pneumonia, & edema. Echo on 05/13 had EF of 60-65% with no other valvular issues. He has no history of CAD, so I think that an anginal equivalent is unlikely. - Worked with PT - rehab (5) Depression: Severe, chronic, and getting worse in the midst of his recent surgery. Seen by psychiatry on 05/13 with recommendations to continue current meds and could titrate up his quetiapine if sleep is an issue. - Monitor depression and sleep - As of 05/15, he reports his mood is very low and reports continued overall weakness. Sleep, however, has been ok. (6) Glioblastoma: S/p resection in May 2017 shortly after time of diagnosis and repeat resection in March 2018 at [facility]. Follows with Dr. Aubrey Watts (neuro-oncology), [facility]. Office # - [phone]; Fax # - [phone]. - Discussing with Dr. Watts on admission and the next day - He advised against increasing his Decadron - Will need f/u with surgeon after discharge. - Continue keppra 500 BID for seizure prophylaxis. - Palliative care consult appreciated - Daughter would like family meeting on Friday to discuss overall prognosis. Feels her father does not realize cancer is terminal and would like him to move to comfort care; however, his (Joanne) is not realistic about prospects. (7) Stroke: Perioperative, March 2018/April 2018 hospital stay. Caused mild left- sided symptoms and transient speech issues; all symptoms have improved per . - Monitor (8) Essential hypertension: BP low-normal at this point. - Continued home medications initially. - Lisinopril lowered to 20mg daily for 05/18. (9) Hyperlipidemia: Initially continued simvastatin; however, stopped on 05/15 for continued subjective weakness. Despite a normal CK, given his poor prognosis, I'm not sure that primary cardiac prevention is really needed. - Held simvastatin (10) Headache: Daily, chronic. He is using Tylenol with ibuprofen every day at home. He could benefit from prophylaxis. - Continue home meds (11) DVT prophylaxis: SCDs Dispo: [facility] as soon as insurance approves it. Daughter also interested in family meeting with palliative care to discuss moving to comfort measures on Friday. Subjective 62yo M w/ glioblastoma s/p 2 resections who presented with weakness, tiredness, and general fatigue. Feels stronger today. Still somewhat also dispirited about having to leave the hospital. No focal complaints. Reports no fevers/chills, chest pain, shortness of breath, abdominal pain, nausea, or vomiting. Physical Exam 2 Vital Signs (Past 24 Hours): Last Vital Signs Temp 36.5 C 05/17/18 15:43 Pulse 72 05/17/18 15:43 Resp 18 05/17/18 15:43 BP 97/65 L 05/17/18 15:43 Pulse Ox 95 05/17/18 15:43 Constitutional: + obese; no acute distress Eyes: + anicteric sclerae and PERRL; no eyelid abnormality and no conjunctival abnormality ENMT: Mouth: + oral mucosal abnormality (slightly dry MM) and + dentition abnormality (poor dentition); no oropharynx abnormality and no tongue abnormality Neck: trachea midline, no thyromegaly Respiratory: normal respiratory effort, lungs clear to auscultation Cardiovascular: RRR, no murmur, no edema Heart Sounds: normal S1 and normal S2 Vessels: posterior tibial pulses present and dorsalis pedis pulses present; no JVD Gastrointestinal (Abdomen): normal bowel sounds, soft, nontender, no hepatosplenomegaly Musculoskeletal: no cyanosis or clubbing, extremities motor strength 5/5 Skin: no rashes, warm and dry Neurologic: deep tendon reflexes 2+ bilaterally and moves all extremities; no focal motor deficits Speech / Cognition: normal speech Psychiatric: Orientation: alert; + not oriented x 3 (could not tell me the day but knew the year and where he was (hospital)) Mood: + depressed mood Lymphatic: no cervical lymphadenopathy _ (1) Diabetes mellitus type 2, uncontrolled Glycemic state: with hyperglycemia Coma presence: Qualified Code(s): E11.65 - Type 2 diabetes mellitus with hyperglycemia (2) Depression Depression Type: other depression Major depression recurrence: Active/ Remission status: Major depression episode severity: Psychotic features: Trimester: Qualified Code(s): F32.89 - Other specified depressive episodes (3) Stroke CVA mechanism: unspecified Precerebral and cerebral artery: Laterality of affected vessel: Qualified Code(s): I63.9 - Cerebral infarction, unspecified (4) Hyperlipidemia Hyperlipidemia type: mixed hyperlipidemia Qualified Code(s): E78.2 - Mixed hyperlipidemia (5) Headache Headache type: unspecified Headache chronicity pattern: chronic headache Intractability: intractable Qualified Code(s): R51 - Headache
[2018-05-17] MEDS: TEMAZEPAM 15 MG CAPSULE PO PRN (20:26)
[2018-05-17] MEDS: TAMSULOSIN HCL 0.4 MG CAP PO SCH (20:29)
[2018-05-17] MEDS: QUETIAPINE FUMARATE 25 MG TABLET PO SCH (20:30)
[2018-05-17] MEDS: INSULIN GLARGINE SOLOSTAR 100 UNITS/ML 3 ML PEN SC SCH (20:35)
[2018-05-18] MEDS ORDERED: INSULIN ASPART 100 UNITS/ML 3 ML PEN SC SCH ×2 (07:30→11:30)
[2018-05-18] MEDS: ACETAMINOPHEN 500 MG TAB PO SCH ×2 (08:55→13:13)
[2018-05-18] MEDS: dexAMETHasone 1 MG TAB PO SCH (08:56)
[2018-05-18] MEDS: VERAPAMIL HCL 240 MG TABCR PO SCH (08:56)
[2018-05-18] MEDS: FEXOFENADINE HCL 180 MG TAB PO SCH (08:56)
[2018-05-18] MEDS: ESCITALOPRAM OXALATE 20 MG TAB PO SCH (08:56)
[2018-05-18] MEDS: levETIRAcetam 500 MG TAB PO SCH (08:56)
[2018-05-18] MEDS ORDERED: LISINOPRIL 20 MG TAB PO SCH (09:00)
--- NOTE | 2018-05-18 10:14 | Palliative Care Progress Note ---
Date of Service May 18, 2018 Assessment & Plan (1) Goals of care, counseling/discussion: -62 year old male with PMH glioblastoma s/p two resections in May and March 2018, DM type 2, htn, HLD, and depression, presented with shortness of breath. Patient was diagnosed with glioblastoma in May 2017, he underwent resection soon after. Patient returned to our ED April 13, 2018 and was sent to [facility] for repeat resection a few days later. He was then sent home and was doing outpatient rehab at [facility]. He was feeling extremely weak and increasingly SOB. He came to the ED here on 05/08, CTA was done which did not show any acute process. Patient improved with some oxygen and was sent home. He returned again on 05/11 with SOB and severe weakness. He is admitted for observation for weakness and dehydration. The patient's goal continues to be FULL CODE. The plan is for the patient to be transfered to [facility] today pending INS authorization. The patients two daughters pulled me aside in the hallway this morning and expressed that they are not planning on telling the patient that he will be going to [facility] permanently as they feel it will be traumatic for him and he may become aggressive. The patient is awake, alert and oriented, but has difficulty retaining some information. The pt daughters state that their step-mother has a need to s/w the [facility] oncologist which has been difficult facilitating. I spoke with Dr. Bal who will work to facilitate a conversation as the step-mother feels that she is 'missing something' and doesn't want to 'throw in the towel' without their conversation. -I met with patient. He is awake, alert and oriented x4. Patient states his will not be in until tomorroe due to weather (I did leave his a voicemail). -Patient states, "There for a while, I thought I was done; but now I'm feeling so much better." His weakness is improving as well as his mood. Patient does suffer from severe depression related to his health issues. Patient's goal is to continue to improve and fight. -Patient completed living will with patient airline security representative. In will, patient states that once he is end-stage, he would not want any heroic measures to keep him alive including CPR, intubation and feeding tube. However, at this time in his life he wants to remain a full code. -No symptom management needs at this time. -PPS 50%. (2) Generalized weakness: -Patient with weakness related to surgery, CVA, and dehydration. -Patient improving a great deal since admission. (3) Dehydration: -Poor PO intake. (4) Breath, shortness: -Had a CTA chest on 05/08 which was negative for PEs, pneumonia, & edema. -Apparently no history of cardiac disease. -Could be related to deconditioning. (5) Depression: -Psych consult. -On escitalopram and quetiapine. (6) Glioblastoma: -S/P resection in May 2017 shortly after time of diagnosis and repeat resection in March 2018 at [facility]. -MRI brain on 05/12 showed 10 x 6.3 x 2.4 cm right temporal scalp fluid collection. -Hospitalist has been in contact with [facility] neurosurgeon. -Patient is on decadron 2mg PO daily. [facility] physician advised against increasing. -Continued supportive care. Will need f/u after hospiatlization. -Keppra 500 BID for seizure prophylaxis. (7) Stroke: -Perioperative, March 2018/April 2018 hospital stay. -No residual deficits. Subjective Pt seen at the bedside, sitting up eating his breakfast. Pt denies pain and appears comfortable. Pt daughters pulled me to the hallway to discuss logistics with transfer to SNF and end of life concerns/considerations. All questions answered and discussed further with IDT Constitutional: + weakness; no fever and no chills Neurologic: + generalized weakness and + headache(s); no confusion Psychiatric: + depression; no anxiety Physical Exam 2 Vital Signs (Past 24 Hours): Last Vital Signs Temp 36.3 C L 05/18/18 07:37 Pulse 68 05/18/18 07:37 Resp 18 05/18/18 07:37 BP 102/66 05/18/18 07:37 Pulse Ox 95 05/18/18 07:37 Time Spent Midlevel Total time spent 25 minutes with > 50% of that time spent assessing the patient , discussing GOALS OF CARE with the patients daughters _ (1) Depression Depression Type: other depression Major depression recurrence: Active/ Remission status: Major depression episode severity: Psychotic features: Trimester: Qualified Code(s): F32.89 - Other specified depressive episodes (2) Stroke CVA mechanism: unspecified Precerebral and cerebral artery: Laterality of affected vessel: Qualified Code(s): I63.9 - Cerebral infarction, unspecified
--- NOTE | 2018-05-18 10:26 | Pharmacy Report ---
Pharmacy Glycemic Short Note 2 - Date of Service May 18, 2018 - Glycemic Short BSG Results (Last 24 hours): 05/17/18 05/17/18 05/17/18 11:31 16:46 20:12 POC Glucose 203 H 206 H 223 H 05/18/18 07:49 POC Glucose 116 H OUTPATIENT ANTIDIABETIC REGIMEN: * Insulin degludec 33 units SQ qHS * Novolog TID * (also on chronic dexamethasone 2 mg daily) * A1c = 8.7% on 05/15/18 ASSESSMENT: 05/18 * Mr. Lake received 93 units of insulin yesterday * Fasting remains well controlled so will continue same dose of basal * I'm surprised, because ALL postprandial BSGs were elevated yesterday, as opposed to just the pre-lunch BSG. Will plan to tighten ALL CRs to 1 unit per 3 gm CHO consumed since the CR of 4 was not tight enough for any of the meals. 05/17 * Christiano received 90 units of insulin yesterday * Fasting BSG remains well controlled * Postprandial BSGs improved with tightening of CF/CR but he continues to have higher elevations prior to lunch. Will make an adjustment to breakfast CR only , to prevent the pre-lunch spike. 05/16 * Mr. Lake received 62 units of insulin yesterday, 33 of this was basal * No change to causes of insulin resistance, remains on once daily Decadron * Fasting BSG = 118 mg/dL; this is after two days of Lantus 33 units and is stable * Postprandial BSGs all above 180 mg/dL - will tighten CF/CR to provide more postprandial control 05/14 * Mr Lake is a 62yo diabetic gentleman admitted with dehydration/ uncontrolled DM. PMH is significant for glioblastoma, palliative consult placed today. * Pharmacy was consulted this morning for glycemic management. * Fasting BSG this am was below goal (80 mg/dL). It looks like Lantus has been dosed higher than patient's normal basal dose at home. Will reduce to home dose beginning this evening. * Patient is receiving Dexamethasone 2mg PO daily, but this is a chronic medication that patient was taking as an outpatient. PLAN FOR INPATIENT GLYCEMIC CONTROL: * Basal insulin -- no change * Lantus 33 units SQ HS * Bolus insulin - tighten CR for all meals * NovoLog per scale ACHS or Q6hrs while NPO * Goal Range: Low 120 mg/dL - High 150 mg/dL * Correction Factor: 12 mg/dL/unit * Nutritional / Prandial insulin per carb ratio of 1 unit per 3 grams CHO consumed PLAN FOR DISCHARGE: * A1c is slightly improved from two years ago. This may be just above goal for him, based upon comorbidities. If anything, would recommend more Novolog being given d/t postprandial effects from steroids.
[2018-05-18] MEDS: SENNA 8.6 MG TAB PO SCH (13:13)
--- NOTE | 2018-05-18 14:17 | Discharge Summary ---
Date of Service May 18, 2018 Admission HPI Per Admitting Provider Per review of records, the patient was initially diagnosed with glioblastoma in May 2017 and underwent resection at [facility]. Recurrent tumor growth necessitated a second resection on 04/20/18 also at [facility], complicated by a stroke on the right side of his brain. He was discharged on April 26 to [facility], where he remained until May 06. Upon returning home, he experienced progressive weakness, and his was unable to manage his needs at home. He has been eating well and his blood glucose has been uncontrolled. He has been on dexamethasone since March 2018, and higher doses have caused agitation and irritability. Upon presentation to the ER yesterday, that case preparer and liner met with him and he reported concerns about being cared for in the home. He said he had to beg his for food and pain medications, and felt so weak he was concerned that he would fall. He canceled his follow-up appointments as he was too weak to get to the car and his was not strong enough to assist him. When his joined, she reported that she has been doing everything she can for him at home, but he is too weak. She encourages him to eat and drink, but he does not listen to her. He requested that his outpatient appointments be canceled because he was too exhausted to get to them. She did not feel able to care for him at home. The option of return to [facility] was explored in the ER, and although they were willing to accept him, his did not want him to return if she felt it would be too strenuous for him. She requested that he be referred to a snf, and wanted him to be hospitalized first. His daughter was also contacted by phone and reported that the patient has been difficult to care for her at home, and that although his has been doing everything she can and it has been too much for her. She was in agreement with [facility] a [facility] for [facility]-of-life care. On admission, his home psychotropics were continued: Escitalopram 20 mg daily and temazepam 30 mg at bedtime as needed ( per prescription records, he has been on these since at least 05/2017, prescribed by PCP), and quetiapine 50 mg at bedtime prescribed for the first time in March 2018. On my assessment, the patient states that his mood has been "terrible" for the past 2-3 months, which he attributes to weakness and his frustration with being unable to do things. He also endorses feeling more irritable and "mean," with difficulty focusing and decreased energy. He denies decreased appetite or weight loss, anhedonia, and suicidal thoughts. He denies significant anxiety and symptoms of andrey and psychosis. Principal Diagnosis no Discharge Data Allergies Allergy/AdvReac Type Severity Reaction Status Date / Time codeine AdvReac Intermediate HALLUCINATI Verified 05/12/18 12:57 ONS Consultations 05/12/18 13:52 ED Decision to Admit Stat 05/12/18 17:53 Consult Psychiatry Routine 05/13/18 13:20 Consult Palliative Care Routine Ordered Studies 05/12/18 12:18 CT head/brain wo con Stat 05/12/18 17:53 MR brain wo/w con Routine Hospital Course (1) Generalized weakness: He was quite weak while at [facility] and after d/c from there the weakness got progressively worse. No infectious process at this time including UTI, pneumonia, influenza, etc. MRI brain on 05/12 showed 10 x 6.3 x 2.4 cm right temporal scalp fluid collection which is likely CSF. CK on 05/15 was normal (20). No focal weakness on exam, and in fact has 5/5 strength throughout. - Discussed with Dr. Aubrey Watts, neuro-oncology at [place], on 05/13 who felt changes were stable. - Likely due to dehydration from uncontrolled DM and poor PO intake, along with some aspect of depression from his medical outlook -after review with patient and family, case preparer and liner help, family agreed to discharge to [facility] today (2) Dehydration: Likely due to diabetes and poor PO intake as above. Has encourage plenty fluid intake in bedside, (3) Diabetes mellitus type 2, uncontrolled: Playing a role in his ongoing failure to thrive. His BSGs have been 300 or higher numerous times at home. He typically takes about 15 units of novolog w / meals along with 33 units of basal insulin. - Kept home Lantus at 33 units QHS - Glycemic pharmacist is adjusting meal-time ratio as it appears most of hyperglycemia is from meal-time highs - Improved on 05/17 with higher meal-time coverage (4) Breath, shortness: Likely due to deconditioning. Had a CTA chest on 05/08 which was negative for PEs, pneumonia, & edema. Echo on 05/13 had EF of 60-65% with no other valvular issues. He has no history of CAD, so I think that an anginal equivalent is unlikely. - Worked with PT - rehab (5) Depression: Severe, chronic, and getting worse in the midst of his recent surgery. Seen by psychiatry on 05/13 with recommendations to continue current meds and could titrate up his quetiapine if sleep is an issue. - Monitor depression and sleep - As of 05/15, he reports his mood is very low and reports continued overall weakness. Sleep, however, has been ok. (6) Glioblastoma: S/p resection in May 2017 shortly after time of diagnosis and repeat resection in March [address] [facility]. Follows with Dr. Aubrey Watts (neuro-oncology), [facility]. Office # - [phone]; Fax # - [phone]. - Discussing with Dr. Watts on admission and the next day - He advised against increasing his Decadron - Will need f/u with surgeon after discharge. - Continue keppra 500 BID for seizure prophylaxis. - Palliative care consult appreciated -This morning palliative care with daughter, case preparer and liner, and my personal, have had family meeting today Has discussed overall prognosis. Family agreed to discharge to snf and switch to palliative care comfort measures at hospice care if agreeable. Specific question family request is to have a neurosurgeon in [facility] review the recent MRI upon admission of the brain, I reviewed her chart and inflammations, acute upon admission, patient is brain MRI results has faxed to neurosurgeon in [place], I encouraged patient and family, continue communication with neurosurgery in [place] (7) Stroke: Perioperative, March 2018/April 2018 hospital stay. Caused mild left- sided symptoms and transient speech issues; all symptoms have improved per . - Monitor (8) Essential hypertension: BP low-normal at this point. - Continued home medications initially. - Lisinopril lowered to 20mg daily for 05/18. (9) Hyperlipidemia: Initially continued simvastatin; however, stopped on 05/15 for continued subjective weakness. Despite a normal CK, given his poor prognosis, I'm not sure that primary cardiac prevention is really needed. - Held simvastatin (10) Headache: Daily, chronic. He is using Tylenol with ibuprofen every day at home. He could benefit from prophylaxis. - Continue home meds (11) DVT prophylaxis: SCDs Subjective upon discharge: Feel tired extremely exhausted after therapist, eating poor, feeling mild low, denies suicidal or homicidal Low pain, Review of Systems Constitutional: Positive weakness, and fatigue Respiratory: no cough, sputum, wheezing, Cardiac: No chest pain, No orthopnea, No PND, No claudication, Abdomen: No pain, No nausea, No vomiting, No diarrhea, Musculoskeletal: No joint pain, No muscle pain, No swelling, : No dysuria, No urinary frequency, No incontinence, No hematuria Neurologic: No numbness/tingling, Psychiatric: No depression symptoms, No anhedonism, No anxiety, No insomnia, No substance abuse Heme: No abnormal bleeding/bruising, No clotting problems, No swollen lymph nodes, No night sweats Skin: No rash, No itch, No new/changing skin lesions, No color change, No bleeding Physical exam upon discharge Constitutional: + obese; looks flat, Eyes: + anicteric sclerae and PERRL; ENMT: Mouth: slightly dry MM) Neck: trachea midline, no thyromegaly Respiratory: normal respiratory effort, lungs clear to auscultation Cardiovascular: RRR, no murmur, no edema Heart Sounds: normal S1 and normal S2 Vessels: posterior tibial pulses present and dorsalis pedis pulses present; no JVD Gastrointestinal (Abdomen): normal bowel sounds, soft, nontender, no hepatosplenomegaly Musculoskeletal: no cyanosis or clubbing, extremities motor strength 5/5 Skin: no rashes, warm and dry Neurologic: deep tendon reflexes 2+ bilaterally and moves all extremities; Psychiatric: Orientation: alert; + not oriented x 3 (could not tell me the day but knew the year and where he was (hospital)) Mood: + depressed mood Lymphatic: no cervical lymphadenopathy Labs upon discharge today: Laboratory Results - last 24 hr 05/17/18 05/17/18 05/18/18 16:46 20:12 07:49 POC Glucose 206 H 223 H 116 H 05/18/18 11:26 POC Glucose 175 H Microbiology 05/12/18 16:12 Blood Blood Culture - Final No growth 05/12/18 16:01 Blood Blood Culture - Final No growth Total Time Total Time Spent Total Time Spent (In Minutes): 35 Total Time Includes: Examination of the Patient, Discharge Planning, Medication Reconciliation and Communication With Other Providers Discharge Plan Discharge Items Patient Disposition: Transfer Intermediate Fac Reason For Visit: DEHYDRATION,WEAKNESS,UNCONTROLLED T2DM Discharge Diagnosis: Generalized weakness, Dehydration, Poor PO intake, Depression and history of Glioblastoma: possible metastatic is of Glioblastoma Condition: Serious Discharge Goals: Decrease discomfort, Diagnostic testing and Learn about illness Activity: As commented below Non-emergency contact: Primary Care Provider and Specialist Call non-emergency contact if: you have any medication questions and your temperature is above 100.5 Diet: Regular Addtl Provider Instructions: you have Generalized weakness, Dehydration, Poor PO intake, Depression and history of Glioblastoma: you are S/P resection in May 2017 shortly after time of diagnosis and repeat resection in March [address] [facility], you need to follow up with neuro surgeon as recommended and if you want you need to follow up with your primary care physician in 1 week, - take medication as instructed, never overdose or any misuse, or take with alcohol, because misuse of medicine may cause organ damage or , call me , or your primary care physician if have questions of discharge medicaitons. - call your primary care physician, - may change to hospice care in [facility] - fall precaution - diet as instructed - you need to follow up with your subspecialist, such as . Neuro surgeon Prescriptions: Continue fexofenadine 180 mg Tablet 180 mg PO QAM RF: 0 dexamethasone 2 mg tablet 2 mg PO QAM RF: 0 simvastatin 20 mg Tablet 20 mg PO HS RF: 0 lansoprazole [Prevacid] 30 mg Capsule,Delayed Release(Dr/Ec) 30 mg PO DAILYBB RF: 0 verapamil 240 mg Tablet Extended Release 240 mg PO AMHS RF: 0 escitalopram oxalate [Lexapro] 20 mg Tablet 20 mg PO QAM RF: 0 quetiapine [Seroquel] 50 mg tablet 50 mg PO HS Qty: 10 RF: 0 sennosides [senna] 8.6 mg Tablet 8.6 mg PO QDL RF: 0 levetiracetam 500 mg Tablet 500 mg PO BID RF: 0 acetaminophen [Tylenol Extra Strength] 500 mg Tablet 500 - 1,000 mg PO TID RF: 0 tamsulosin [Flomax] 0.4 mg Capsule 0.4 mg PO HS RF: 0 temazepam 30 mg Capsule 30 mg PO HS PRN (Reason: Sleep) RF: 0 ibuprofen 400 mg Tablet 400 mg PO Q8 PRN (Reason: Pain) RF: 0 ondansetron 4 mg Tablet,Disintegrating 4 mg PO Q6 PRN (Reason: Nausea) RF: 0 insulin aspart U-100 100 unit/mL insulin pen subcut TID RF: 0 insulin degludec 100 unit/mL (3 mL) insulin pen 33 units subcut HS RF: 0 Changed lisinopril 40 mg Tablet 20 mg PO QAM Qty: 0 RF: 0 Stand-Alone Forms: [facility] Discharge Orders: Discharge Order (Routine); Ordered 05/18/18 Ordered By: Miguel A Bal Skilled Items Patient informed of condition?: Yes DNR: No Discharge Level of Care: Skilled Communicable Disease: No Discharge Prognosis: Deteriorating Admission Data Admit Date/Time: 05/14/18 16:12 Attending Provider: Miguel A Bal Admit Provider: Rodrick Armendariz Primary Care Provider: Brent Abdalla III Other Providers: Flor Castano ; Warner Cifuentes ; Flor Schreiber ; Betzaida Armstrong ; Kaye Pires Service: Telemetry
--- NOTE | 2018-05-19 12:18 | Coding Query ---
CODING QUERY FOR UNCONTROLLED DIABETES To promote full compliance with coding requirements relating to patient care, provider participation is requested in all cases of medical billing service uncertainty. Please assist us with the question(s) below: Coding Question: The term uncontrolled Diabetes was used throughout the record. To be able to code this diagnosis properly, could you please clarify the diagnosis below: ( ) Uncontrolled Diabetes meaning hypoglycemia ( x ) Uncontrolled Diabetes meaning hyperglycemia ( ) Other (please specify) Principal Diagnosis: "that condition established after study, to be chiefly responsible for occasioning the admission of the patient to the hospital for care." Co-Existing Principal Diagnosis: "when two or more diagnoses equally meet the criteria for principal diagnosis as determined by the circumstances of admission , diagnostic work up, and/or therapy provided, and the Alphabetic Index, Tabular List, or another coding guideline does not provide sequencing direction , any one of the diagnoses may be sequenced first." "When the physician has documented what appears to be a current diagnosis in the body of the record, but has not included the diagnosis in the final diagnostic statement, the physician should be asked whether the diagnosis should be added." (Source Coding [facility] 2 QTR90. p3-4) ALFONZO
== END 2018-05-18 15:40 | DRG 948 ==
LOC: ED 11:33 → SUATTDRO 15:34 → INTOOBSV 15:34 → 2N 15:34 → SUATTDRO 05-14 16:12 → 4E 05-17 10:32